=== PATIENT | male | born 1980 | race Caucasian/White ===

== ENCOUNTER → 2020-02-05 12:02 | Outpatient (CLI) | payer BC, SELFPAY ==
--- NOTE | ~2020-02-05 | XR_ITS ---
EXAMINATION: XR chest 2V 02/05/2020 12:31 INDICATION: Cough PROCEDURE: 2 view chest COMPARISON: No prior studies for comparison. FINDINGS: The lungs are clear. The cardiomediastinal silhouette is within normal limits. There are no pleural effusions. There is no pneumothorax suspected. IMPRESSION: 1: NO ACUTE CARDIOPULMONARY DISEASE. Reviewed, dictated and finalized at location A.
== END ==
PROVIDERS: PCP Family Medicine; Visit Provider Family Medicine
DX: R05 Cough (principal)
CPT/HCPCS: 71046

== ENCOUNTER 2024-02-03 04:55 | Inpatient (IN) | payer BC, SELFPAY ==
--- NOTE | ~2024-02-03 | US_ITS ---
EXAMINATION: US abdomen limited DATE: 02/03/2024 08:05 INDICATION: Abnormal liver function tests. TECHNIQUE: Multiple grayscale and Doppler ultrasound images of the abdomen were obtained. COMPARISON: CT abdomen and pelvis 02/03/2024 FINDINGS: The pancreas demonstrates heterogeneous echogenicity, consistent with pancreatitis. There i s diffuse hepatic steatosis. There is normal flow in main portal vein. The gallbladder is normal in s ize and contains a gallstone. No gallbladder wall thickening or sonographic [place] sign. The common d uct is normal and measures 2 mm. IMPRESSION: 1. Heterogeneous pancreas, consistent with pancreatitis. 2. Diffuse hepatic steatosis. 3. Cholelithiasis. No evidence of acute cholecystitis. Reviewed, dictated and finalized at location A.
--- NOTE | ~2024-02-03 | CT_ITS ---
EXAMINATION: CT abdomen pelvis wo con DATE: 02/03/2024 06:17 INDICATION: Abdominal pain. TECHNIQUE: Computed tomography (CT) of the abdomen and pelvis was performed without intravenous contr ast. Automated exposure control and iterative reconstruction technique were employed. The dose-length product was 1466.79 mGy-cm. COMPARISON: CT abdomen 09/16/2018 FINDINGS: The visualized portions of the lung bases demonstrate mild atelectasis. No pleural effusion . The heart size is normal. No pericardial effusion. There is a small sliding hiatal hernia. There is diffuse hepatic steatosis. There are gallstones in the gallbladder, which is distended. The spleen i s normal. There is fat stranding around the pancreas, consistent with pancreatitis. There is a calcif ication in the pancreas, consistent with chronic pancreatitis. The common duct is normal and measures 6 mm. The adrenal glands and kidneys are normal. The prostate is mildly enlarged. There are no dilat ed loops of bowel. The appendix is normal. There are no pathologically enlarged lymph nodes. There is no free intraperitoneal fluid. There is mild thoracic and lumbar spondylosis. IMPRESSION: 1. Acute on chronic interstitial pancreatitis. 2. Cholelithiasis. Gallbladder distention may be secondary to fasting or acute cholecystitis. Reviewed, dictated and finalized at location A.
--- NOTE | ~2024-02-03 | MR_ITS ---
MRI of the abdomen: Clinical indication: Gallstone pancreatitis. Technique: Coronal SSFSE ARC, WATER:coronal LAVA-FLEX, Coronal 2D FIESTA FatSat, Axial SSFSE BH ARC, Axial 3D DualEcho BH, Axial SSFSE-IR, Axial DWI b=500, Axial 2D FIESTA FatSat, pre and dynamic postco ntrast Axial LAVA ARC, postcontrast Coronal In and Opposed phase LAVA FLEX. Following intravenous adm inistration of 20 cc MultiHance gadolinium, T1-weighted fat-sat imaging was performed in the axial an d coronal planes. Findings: There is a large gallstone, measuring approximately 5 cm in maximum diameter. No definite g allbladder wall thickening. The common bile duct is normal in course and caliber. No filling defects are seen within the CBD. No evidence of intrahepatic biliary ductal dilatation. The pancreatic duct i s normal in size. There is diffuse signal drop off in the liver on out of phase images relative to in phase images, com patible with diffuse fatty infiltration. There is diffuse edematous change of the pancreas with exten sive peripancreatic fluid, extending into the paracolic gutters, compatible with acute pancreatitis. No pseudocyst evident. Spleen, adrenals, kidneys appear normal. The aorta and the paraaortic regions appear normal. Impression: Acute pancreatitis. Diffuse fatty infiltration of liver. Cholelithiasis. No evidence of choledocholithiasis. Reviewed, dictated and finalized at [facility] [place]. Impression: Acute pancreatitis. Diffuse fatty infiltration of liver. Cholelithiasis. No evidence of choledocholithiasis.
[2024-02-03 05:00] VITALS: BP 138/82; PULSE 54; RESP 16; TEMP 36.4; O2SAT 100
[2024-02-03 05:19] LABS: Basophils Percent Auto 0.3 % (0.2-1.2); Eosinophils Percent Auto 0.3 % (0-4.4); Hemoglobin 15.7 g/dL (14.0-18.0); Immature Granulocyte Absolute 0.07 K/mm3 (0.00-0.031); Immature Granulocyte Percent A 0.5 % (0-0.5); Lymphocytes Absolute Auto 2.04 K/mm3 (0.9-3.2); Lymphocytes Percent Auto 14.8 % (18.3-44.2); Mean Corpuscular HGB Conc 34.9 g/dl (32-36); Monocytes Absolute Auto 0.9 K/mm3 (0.1-0.6); Monocytes Percent Auto 6.1 % (2.6-8.5); Neutrophils Absolute Auto 10.8 K/mm3 (1.3-6.7); Platelet Count Result 236 k/mm3 (150-375); Red Blood Count 5.23 M/mm3 (4.6-6.20); Red Cell Distribution Width 13.8 % (11.5-14.5); White Blood Count 13.8 K/mm3 (4.5-10.0)
--- NOTE | 2024-02-03 05:32 | ED.GENADULT ---
HPI - General Adult General Chief complaint: Abdominal Pain Stated complaint: N/V, ABD and BACK pain Time Seen by Provider: 02/03/24 05:12 History of Present Illness HPI narrative: Patient is a 43-year-old gentleman presents emergency department chief complaint of abdominal pain. Patient reports that he started pain yesterday reports that it starts in the upper abdomen but now has continued to the rest of his abdomen the patient reports he has not had been able to keep anything down has had vomiting of the patient reports that symptoms are not improved by anything he denies diarrhea reports he has had a normal bowel movement the last 24 hours denies prior surgical history on the abdomen Related Data Allergies Allergy/AdvReac Type Severity Reaction Status Date / Time Iodinated Contrast Media Allergy Intermediate Sneezing Verified 02/03/24 05:14 vyvanse AdvReac Intermediate heart Uncoded 02/03/24 05:14 racing Review of Systems Review of Systems: A 10 system review of systems was completed on the patient and is negative except for what is stated in the HPI. Nursing and ancillary documentation was reviewed. [facility] Past Medical History Medical History Adult BMI 32.0-32.9 kg/sq m Family History Family History Other Hypertension Social History Social History Smoking status: Former smoker Alcohol intake: current Substance use: current Substance use type: marijuana Lack of Transportation: No Lack of Food: Never True Current Housing: I Have Housing Concerned About Future Housing: No Difficulty Paying Gas/Electric Bills: No Difficulty Paying for Meds: No Currently Unemployed: No Education: Bachelor's Degree Difficulty w/ Childcare or Family Care: No Living arrangements: with family Occupation/Education: occupation Additional occupation/education comments: IT Gender identity (if verbalized by the patient): Male Exam Narrative: GENERAL: Well-appearing, well-nourished, and in no acute distress. HEAD: Normocephalic, atraumatic. EYES: PERRLA and EOMI. ENT: Nares clear, no rhinorrhea or epistaxis. Mucous membranes moist. NECK: Supple. CHEST: Clear to auscultation. No respiratory distress. HEART: Regular rate and rhythm. No murmur heard. Normal peripheral pulses. ABDOMEN: Soft, diffusely tender, nondistended, normal active bowel sounds. EXTREMITIES: Normal range of motion. No edema. SKIN: Warm, dry, no rash. NEURO: No focal deficits. Alert and oriented x3. PSYCH: Normal mood and affect. Course Vital Signs Vital signs: Vital Signs Temperature 36.4 C 02/03/24 05:00 Pulse Rate 54 L 02/03/24 05:00 Respiratory Rate 16 02/03/24 05:00 Blood Pressure 138/82 02/03/24 05:00 Pulse Oximetry 100 02/03/24 05:00 Oxygen Delivery Room Air 02/03/24 05:00 Temperature 36.4 C 02/03/24 05:00 Pulse Rate 54 L 02/03/24 05:00 Respiratory Rate 16 02/03/24 05:00 Blood Pressure 138/82 02/03/24 05:00 Pulse Oximetry 100 02/03/24 05:00 Oxygen Delivery Room Air 02/03/24 05:00 Medical Decision Making [facility] Narrative Medical decision making narrative: Differential diagnosis includes gastritis, pancreatitis, cholecystitis Laboratory studies were obtained on the patient showed a white count of 13.8 electrolytes showed normal renal function bilirubin is 2.1 AST and ALT were elevated at 313 and 253 lipase was 31,813 CT scan of the abdomen pelvis showed 1. Acute on chronic interstitial pancreatitis. 2. Cholelithiasis. Gallbladder distention may be secondary to fasting or acute cholecystitis. Vital Signs Vital Signs: Vital Signs Temperature 36.4 C 02/03/24 05:00 Pulse Rate 54 L 02/03/24 05:00 Respiratory Rate 16 02/03/24 05:00 Blood Pressure 138/82
[2024-02-03 05:41] LABS: Alanine Aminotransferase 253 U/L (6-50); Albumin Level 4.7 g/dL (3.5-5.1); Alkaline Phosphatase 82 U/L (38-126); Anion Gap 9 mmol/L (4-12); Aspartate Amino Transferase 313 U/L (17-59); Bilirubin,Total 2.1 mg/dL (0.2-1.3); Blood Urea Nitrogen 18 mg/dL (9-20); Calcium 9.2 mg/dL (8.4-10.2); Carbon Dioxide 28 mmol/L (22-30); Chloride 98 mmol/L (98-107); Estimated CRCL calculation 99 ml/min; Estimated Glomerular Filt Rate > 60; Glucose 227 mg/dL (65-110); Potassium 3.8 mmol/L (3.4-5.0); Sodium 135 mmol/L (137-145)
[2024-02-03] MEDS: SODIUM CHLORIDE 0.9% IV 1,000 ML 999 ML IV CONT (05:45)
[2024-02-03] MEDS: MORPHINE SULFATE (*CRX) 4 MG/ML INJ IV PUSH ×5 (05:46→22:23)
[2024-02-03] MEDS: ONDANSETRON INJ 4 MG/2 ML VIAL IV PUSH ×4 (05:46→22:22)
[2024-02-03 06:31] LABS: Lipase 31813 U/L (23-300)
[2024-02-03 06:38] VITALS: BP 133/91; PULSE 57; RESP 14; O2SAT 100
[2024-02-03 06:50] LABS: Add Urine Microscopic? YES; Appearance Urine Clear (Clear); Bacteria Urine None Seen /hpf; Bilirubin Urine Negative (Negative); Blood Urine Negative (Negative); Color Urine Dark Yellow (Yellow); Glucose Urine UA Trace mg/dL (Negative); Ketones Urine Trace mg/dL (Negative); Leukocyte Esterase Ur Negative LEU/UL (Negative); Nitrate Urine Negative (Negative); Non Pathogenic Casts 0-2; Protein Urine Trace mg/dL (Negative); RBC Urine 0-2 /hpf (0-2); Specific Grav Ur 1.019 (1.001-1.035); Squamous Epithelial Cell Urine None Seen /hpf (Few); WBC Urine 0-5 /hpf (0-3); pH Urine 6.5 (5.0-9.0)
--- NOTE | 2024-02-03 09:22 | PM.IMHP ---
H&P: HPI History of Present Illness Date/Time: 02/03/24 09:22 Chief Complaint: abdominal pain Narrative: Patient is a 43-year-old gentleman presents emergency department chief complaint of abdominal pain. Patient reports that he started pain yesterday reports that it starts in the upper abdomen but now has continued to the rest of his abdomen the patient reports he has not had been able to keep anything down has had vomiting of the patient reports that symptoms are not improved by anything he denies diarrhea reports he has had a normal bowel movement the last 24 hours denies prior surgical history on the abdomen. He does report that he had 2 drinks night. He had says when he was on was related to binge drinking. No new sites. No fever chills. Review of Systems Review of Systems: - CONSTITUTIONAL: Denies weight loss, fever and chills. - HEENT: Denies changes in vision and hearing - RESPIRATORY: Denies SOB and cough. - CV: Denies palpitations and CP. - GI: Reports abdominal pain, nausea, vomiting and denies diarrhea. - : Denies dysuria and urinary frequency. - MSK: Denies myalgia and joint pain. - SKIN: Denies rash and pruritus. - NEUROLOGICAL: Denies headache and syncope. - PSYCHIATRIC: Denies recent changes in mood. Denies anxiety and depression. [facility] Past Medical History Medical History Adult BMI 32.0-32.9 kg/sq m Family History Family History Other Hypertension Social History Social History Smoking status: Never smoker Alcohol intake: never Substance use: current Substance use type: marijuana Other substance usage details: Edibles - occasional Do You Feel Safe in your Home?: Yes Lack of Transportation: No Lack of Food: Never True Current Housing: I Have Housing Concerned About Future Housing: No Difficulty Paying Gas/Electric Bills: No Difficulty Paying for Meds: No Currently Unemployed: No Education: Don't Know Difficulty w/ Childcare or Family Care: No Living arrangements: with family Occupation/Education: occupation Additional occupation/education comments: IT Gender identity (if verbalized by the patient): Male Spiritual care concerns: No Meds Home Medications and Allergies Allergies Allergy/AdvReac Type Severity Reaction Status Date / Time Iodinated Contrast Media Allergy Intermediate Sneezing Verified 02/03/24 09:48 lisdexamfetamine AdvReac Intermediate heart Verified 02/03/24 09:48 [From [employer]] racing Vital Signs Vital Signs - 24 hr 02/03/24 05:00 02/03/24 06:38 Temperature 97.6 F Pulse Rate 54 L 57 L Respiratory Rate 16 14 Blood Pressure 138/82 133/91 H Pulse Oximetry 100 100 Oxygen Delivery Room Air Exam Narrative: GENERAL: Well-appearing, well-nourished, and in no acute distress. HEAD: Normocephalic, atraumatic. EYES: PERRLA and EOMI. ENT: Nares clear, no rhinorrhea or epistaxis. Mucous membranes moist. NECK: Supple. CHEST: Clear to auscultation. No respiratory distress. HEART: Regular rate and rhythm. No murmur heard. Normal peripheral pulses. ABDOMEN: Soft, tender epigastrium, nondistended, normal active bowel sounds. EXTREMITIES: Normal range of motion. No edema. SKIN: Warm, dry, no rash. NEURO: No focal deficits. Alert and oriented x3. PSYCH: Normal mood and affect. H&P: Results Labs Labs: Short CBC 02/03/24 Range/Units 05:12 WBC 13.8 H (4.5-10.0) K/mm3 Hgb 15.7 (14.0-18.0) g/dL Hct 45.0 (42.0-52.0) % Plt Count 236 (150-375) k/mm3 [facility] 02/03/24 05:12 Sodium 135 L Potassium 3.8 Chloride 98 Carbon Dioxide 28 BUN 18 Creatinine 1.10 Glucose 227 H Calcium 9.2 Liver Function 02/03/24 Range/Units 05:12 Total Bilirubin 2.1 H (0.2-1.3) mg/dL
--- NOTE | 2024-02-03 09:35 | WPDCN ---
Assessment and Plan Assessment and plan (1) Acute pancreatitis: Code(s): K85.90 - Acute pancreatitis without necrosis or infection, unspecified Status: Acute Assessment and Plan: Patient admitted with relatively severe acute pancreatitis could be biliary in etiology or possibly alcohol use. He has a prior history of acute pancreatitis many years ago due to alcohol use. He did have some alcohol this last week but stated it was not an excessive amount. He does have a gallstone some gallbladder wall thickening which could be reactive to his acute pancreatitis. Total bilirubin is elevated to 2.1 so he may have had a small gallstone pass and the gallbladder into the common bile duct which could have passed through. Common bile duct is normal caliber a 2mm however. I recommend supportive management in the hospital for pancreatitis. No need for emergent laparoscopic cholecystectomy. Given that the has a large gallstone and he has not had episodes of acute pancreatitis for many years appears to not be drinking in excess amount of alcohol I would suspect that pancreatitis would be due to biliary origin. Once his acute pancreatitis has resolved we can consider a laparoscopic cholecystectomy either during this admission or at interval lap [facility] as outpatient. Will follow. (2) Gallstone: Code(s): K80.20 - Calculus of gallbladder without cholecystitis without obstruction Status: Acute Assessment and Plan: As above. HPI Data of Consult Date/Time: 02/03/24 09:35 Requesting Physician: Remigio Taylor MD Primary Care Provider: Sae Kim MD Consult Narrative Reason for consult: Acute pancreatitis, cholelithiasis Narrative: Richard Rodgers is a 44 year old male admitted through the emergency room early this morning. Last evening he had some gastric pain but then went to bed and then over the evening he had worsening pain woke up this morning with severe epigastric abdominal pain. He has had 1 episode of acute pancreatitis was 17 years old. He is 44 years old now. 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 Otherwise is not had any abdominal surgery. In the emergency room he was noted to have a markedly elevated lipase level almost 32,000. Total bilirubin was elevated 2.1 and AST and ALT were elevated. Alkaline phosphatase was normal. Abdominal ultrasound shows a gallstone. Gallbladder wall was mildly thickened which could be reactive to his pancreatitis or mild acute cholecystitis due to his gallstones. CT scan showed gallstones as well as acute interstitial pancreatitis which did not appear to be necrotizing at this time. Patient white blood count is 13,800. He is afebrile. This morning he epigastric abdominal pain rating 6/10. He has pretty severe nausea and is getting Zofran for his nausea. His pancreatitis when he was 17 years old was due to excessive alcohol use. He has not had a other admissions or issues with acute pancreatitis since that time. He states he did have some alcohol during her work trip this week but he did not think it was excessive. Review of Systems Review of Systems: The remainder of the review of systems to include constitutional, HEENT, cardiovascular, respiratory, GI, , integumentary, musculoskeletal, endocrine, immunologic, hematologic, psychiatric, and neurologic are all negative except for which is mentioned above in the HPI. [facility] Past Medical History Medical History Adult BMI 32.0-32.9 kg/sq m Family History Family History Other Hypertension Social History Social History Smoking status: Former smoker Alcohol intake: current Substance use: current Substance use type: marijuan
[2024-02-03 09:36] LABS: Triglycerides 158 mg/dL (<150)
--- NOTE | 2024-02-03 09:42 | ADMGEN ---
This patient, Richard Rodgers, was admitted to Medical Room 343-01. Patient/family oriented to hospital policies and general routines including ID bracelet, bed and alarms, visiting hours, pain management, procedures, bathroom and other care routines, personal items, smoking policy, room service/diet, and visiting hours. Information on how to activate the Rapid Response Team has been discussed. Patient/Family are encouraged to report perceived risks to care and to ask questions if they do not understand what they are told or what they should do.
[2024-02-03 09:45] VITALS: BP 146/87; PULSE 58; RESP 18; TEMP 36.3; O2SAT 97
[2024-02-03 09:48] LABS: Hemoglobin A1C 5.5 % (<5.7)
[2024-02-03] MEDS: PANTOPRAZOLE SODIUM IV 40 MG VIAL IV PUSH (09:53)
[2024-02-03] MEDS: SODIUM CHLORIDE 0.9% IV 1,000 ML 125 ML IV CONT ×3 (09:53→22:29)
[2024-02-03] MEDS: ENOXAPARIN 40 MG/0.4 ML SYRINGE SUB-Q (09:53)
[2024-02-03 14:28] VITALS: BP 180/96; PULSE 71; RESP 19; TEMP 36.5; O2SAT 96
--- NOTE | 2024-02-03 14:35 | WPDGICN ---
Assessment and Plan Assessment and plan (1) Gallstone pancreatitis: Code(s): K85.10 - Biliary acute pancreatitis without necrosis or infection Status: Acute Assessment and Plan: pain control, fluids and npo for now surgery in the case, at some point may need lap emanuel once pancreatitis better get MRCP to assess if stone in bile duct given elevated liver enzymes but this also could be just from pancreatitis (2) Elevated liver enzymes: Code(s): R74.8 - Abnormal levels of other serum enzymes Status: Acute Assessment and Plan: monitor mrcp (3) Nausea & vomiting: Code(s): R11.2 - Nausea with vomiting, unspecified Status: Acute Assessment and Plan: antiemetics npo for now (4) Upper abdominal pain: Code(s): R10.10 - Upper abdominal pain, unspecified Status: Acute GI Consult Note Consult date/time: 02/03/24 14:35 Reason for consult: gallstone pancreatitis HPI: Richard Rodgers is a 44 year old male who had pancreatitis at age 18-18 years old, he remember that required endoscopic drainage of pancreatic cyst ? EUS (no records) and since has been doing quite well, denies any more episodes. He came her with new pain that got severe in upper abdomen associated with nausea adn vomiting. ER labs showed markedly elevated lipase level almost 32,000. Total bilirubin was elevated 2.1 and AST and ALT were elevated. Alkaline phosphatase was normal. Abdominal ultrasound shows a gallstone. Gallbladder wall was mildly thickened which could be reactive to his pancreatitis or mild acute cholecystitis due to his gallstones. CT scan showed gallstones as well as acute interstitial pancreatitis. He says that drinks only socially. Review of Systems Constitutional: Constitutional: Denies headache(s) and Denies weakness Eyes: Eyes: Denies blurry vision ENT: Reports Normal hearing present, Denies headache(s) and Denies neck pain Cardiovascular: Cardiovascular: Denies chest pain and Denies dyspnea Respiratory: Respiratory: Denies dyspnea Gastrointestinal: Gastrointestinal: Reports no additional gastrointestinal complaints Genitourinary: Genitourinary: Denies dysuria Musculoskeletal: Musculoskeletal: Denies neck pain Integumentary/Breasts: Skin/Breast: Denies dry skin Neurologic: Reports Normal hearing present, Denies headache(s) and Denies weakness Psychiatric: Psychiatric: Denies anxiety Endocrine: Endocrine: Denies change in body appearance Hematologic/Lymphatic: Hematologic/Lymphatic: Denies easy bleeding Allergic/Immunologic: Allergic/Immunologic: Denies urticaria PMFSH Past Medical History Medical History (Updated 02/03/24 @ 14:39 by Prasanna Segundo MD) Adult BMI 32.0-32.9 kg/sq m Gallstone pancreatitis Nausea & vomiting Upper abdominal pain Family History Family History Other Hypertension Social History Social History Smoking status: Never smoker Alcohol intake: never Substance use: current Substance use type: marijuana Other substance usage details: Edibles - occasional Do You Feel Safe in your Home?: Yes Lack of Transportation: No Lack of Food: Never True Current Housing: I Have Housing Concerned About Future Housing: No Difficulty Paying Gas/Electric Bills: No Difficulty Paying for Meds: No Currently Unemployed: No Education: Don't Know Difficulty w/ Childcare or Family Care: No Living arrangements: with family Occupation/Education: occupation Additional occupation/education comments: IT Gender identity (if verbalized by the patient): Male Spiritual care concerns: No Meds Home Medications and Allergies Allergies Allergy/AdvReac Type Severity Reaction Status Date / Time Iodinated Contrast Media Allergy Intermediate Sneezing Verified 02/03/24 09:48 lisdexamfe
[2024-02-03 21:15] VITALS: BP 175/99; PULSE 91; RESP 20; TEMP 36.9; O2SAT 98
[2024-02-03 21:55] VITALS: O2SAT 98
[2024-02-04 01:45] VITALS: BP 142/94; O2SAT 96
[2024-02-04] MEDS: MORPHINE SULFATE (*CRX) 4 MG/ML INJ IV PUSH ×2 (04:05→07:57)
[2024-02-04] MEDS: SODIUM CHLORIDE 0.9% IV 1,000 ML 125 ML IV CONT ×3 (05:38→20:51)
[2024-02-04 05:47] LABS: Basophils Percent Auto 0.2 % (0.2-1.2); Hematocrit 45.5 % (42.0-52.0); Hemoglobin 15.4 g/dL (14.0-18.0); Immature Granulocyte Absolute 0.12 K/mm3 (0.00-0.031); Immature Granulocyte Percent A 0.6 % (0-0.5); Lymphocytes Absolute Auto 1.11 K/mm3 (0.9-3.2); Lymphocytes Percent Auto 5.6 % (18.3-44.2); Mean Corpuscular HGB Conc 33.8 g/dl (32-36); Mean Corpuscular Hemoglobin 29.5 pg (26-34); Mean Corpuscular Volume 87.2 fl (80-100); Mean Platelet Volume 9.9 fl (7.4-10.4); Monocytes Absolute Auto 1.6 K/mm3 (0.1-0.6); Neutrophils Absolute Auto 17.1 K/mm3 (1.3-6.7); Neutrophils Percent Auto 85.6 % (45.5-73.1); Platelet Count Result 208 k/mm3 (150-375); Red Blood Count 5.22 M/mm3 (4.6-6.20); Red Cell Distribution Width 14.5 % (11.5-14.5); White Blood Count 19.9 K/mm3 (4.5-10.0)
[2024-02-04 05:54] VITALS: BP 151/98; PULSE 105; RESP 20; TEMP 37.1; O2SAT 97
[2024-02-04 06:17] LABS: Alanine Aminotransferase 419 U/L (6-50); Albumin Level 4.2 g/dL (3.5-5.1); Alkaline Phosphatase 70 U/L (38-126); Anion Gap 9 mmol/L (4-12); Aspartate Amino Transferase 163 U/L (17-59); Bilirubin,Total 4.1 mg/dL (0.2-1.3); Blood Urea Nitrogen 20 mg/dL (9-20); Calcium 8.5 mg/dL (8.4-10.2); Carbon Dioxide 27 mmol/L (22-30); Chloride 100 mmol/L (98-107); Estimated CRCL calculation 99 ml/min; Estimated Glomerular Filt Rate > 60; Glucose 164 mg/dL (65-110); Magnesium 1.9 mg/dL (1.6-2.3); Potassium 4.4 mmol/L (3.4-5.0); Sodium 136 mmol/L (137-145)
[2024-02-04 06:59] LABS: Lipase 4533 U/L (23-300)
[2024-02-04] MEDS: PANTOPRAZOLE SODIUM IV 40 MG VIAL IV PUSH (07:52)
[2024-02-04] MEDS: ENOXAPARIN 40 MG/0.4 ML SYRINGE SUB-Q (07:53)
[2024-02-04] MEDS: ONDANSETRON INJ 4 MG/2 ML VIAL IV PUSH ×2 (07:53→14:45)
--- NOTE | 2024-02-04 08:16 | PM.IMPN ---
Progress Note: A&P Assessment and Plan (1) Gallstone: Code(s): K80.20 - Calculus of gallbladder without cholecystitis without obstruction Status: Acute (2) Acute pancreatitis: Code(s): K85.90 - Acute pancreatitis without necrosis or infection, unspecified Status: Acute (3) Elevated liver enzymes: Code(s): R74.8 - Abnormal levels of other serum enzymes Status: Acute Plan Patient is a 43-year-old gentleman presents emergency department chief complaint of abdominal pain. Patient reports that he started pain yesterday reports that it starts in the upper abdomen but now has continued to the rest of his abdomen the patient reports he has not had been able to keep anything down has had vomiting of the patient reports that symptoms are not improved by anything he denies diarrhea reports he has had a normal bowel movement the last 24 hours denies prior surgical history on the abdomen On ED evaluation vitals were stable. Laboratory test studies reveal white cell count of 13.8 normal renal function blood sugar 227. Lipase came back at 31,813. AST and ALT were elevated at 313 and 253 respectively with a bilirubin of 2.1. CT scan of the abdomen pelvis showed acute on chronic interstitial pancreatitis with cholelithiasis. Gallbladder distention may be secondary to fasting acute cholecystitis. Follow-up abdominal ultrasound showed a dizziness pain care consistent with pancreatitis with diffuse hepatic steatosis and cholelithiasis with no evidence of acute cholecystitis. Patient will be treated with IV fluid pain control with analgesics and antiemetics. Will keep him NPO for now. check triglycerides. History of pancreatitis related to binge alcohol use in the past. though he had recent alcohol use was not excessive amount. He does have gallstone in the gallbladder however bile ducts are not distended. Possibility of biliary pancreatitis. Trend LFTs for now if if not improving may need MRCP evaluation. GI and General surgery has been consulted. MRCP with no choledocholithiasis. LFTs trending up. Continue IV fluid resuscitation and other orders as is. Abnormal liver function test no biliary ductal dilatation noted. Will continue to monitor. GI consultation. MRCP with no choledocholithiasis. Continue to trend LFT. Likely from acute pancreatitis. Change IV pain medication to Dilaudid IV due to nausea DVT prophylaxis Lovenox Code status full code Subjective Date/time seen: 02/04/24 08:18 Interval history: No overnight events reported. feels better. Still has some nausea and had episode of vomiting earlier today. Remains afebrile. Labs reviewed. MRCP reviewed. Review of Systems Review of Systems: All systems reviewed & are unremarkable except as noted in HPI and below Exam Narrative: GENERAL: Well-appearing, well-nourished, and in no acute distress. HEAD: Normocephalic, atraumatic. EYES: PERRLA and EOMI. ENT: Nares clear, no rhinorrhea or epistaxis. Mucous membranes moist. NECK: Supple. CHEST: Clear to auscultation. No respiratory distress. HEART: Regular rate and rhythm. No murmur heard. Normal peripheral pulses. ABDOMEN: Soft, tender epigastrium, nondistended, normal active bowel sounds. EXTREMITIES: Normal range of motion. No edema. SKIN: Warm, dry, no rash. NEURO: No focal deficits. Alert and oriented x3. PSYCH: Normal mood and affect. Objective Data Vital Signs Vital Signs: Vital Signs - 24 hr 02/03/24 09:45 02/03/24 14:28 02/03/24 16:55 Temperature 97.3 F L 97.7 F Pulse Rate 58 L 71 Respiratory Rate 18 19 Blood Pressure 146/87 H 180/96 H Pulse Oximetry 97 96 Oxygen Delivery Room Air 02/03/24 21:15 02/03/24 21:55 02/04/24 01:45 Temperature 98.4 F Pulse Rate 91 Respiratory Rate 20 Blood Pressure 175/99 H 142/94 H Pulse Oximetry 98 98 96 Oxygen Delivery Room Air 02/04/24 05:54 02/04/24 07:57 Temperature 98.8 F Pulse Rate 105 H Respirator
[2024-02-04 09:59] VITALS: O2SAT 96
--- NOTE | 2024-02-04 13:06 | WPDPN ---
Progress Note: A&P Assessment and Plan (1) Acute pancreatitis: Code(s): K85.90 - Acute pancreatitis without necrosis or infection, unspecified Status: Acute Assessment and Plan: Clinically the patient has acute pancreatitis improved today. Exact etiology is still not certain but biliary pancreatitis or alcoholic pancreatitis is most likely going to be the reason for his episode. White blood count increased but clinically he looks much better. Lipase is markedly decreased but his total bilirubin increased. GI continues to follow. For now continue supportive management. I think he was started on some clear liquids today. We will continue to follow. Would recommend eventual laparoscopic cholecystectomy once his acute pancreatitis resolves. (2) Gallstone: Code(s): K80.20 - Calculus of gallbladder without cholecystitis without obstruction Status: Acute Assessment and Plan: As above Subjective Date/time seen: 02/04/24 13:06 Interval history: Patient feels better today. Still some nausea and only have 1 episode of emesis early today. Abdominal pain in the epigastric region is better today. He is able to get up and ambulate to bathroom independently. White blood cell count increased to 19,900 today. Clinically he looks better. Lipase is markedly decreased from 32,000 down to 3500. Total bilirubin has increased to 4.1 from 2.1. MRCP performed showed no evidence of retained common bile duct stone and normal appearing common bile duct. Large 5cm gallstone noted within the infundibular gallbladder. No acute inflammatory changes of the gallbladder wall. Interstitial pancreatitis noted without formation of pseudocyst at this time. Exam GI: Other: Abdomen is soft and mildly distended. Much less tenderness in the epigastric region of the abdomen today compared to yesterday's exam. Objective Data Vital Signs Vital Signs: Vital Signs - 24 hr 02/03/24 14:28 02/03/24 16:55 02/03/24 21:15 Temperature 36.5 C 36.9 C Pulse Rate 71 91 Respiratory Rate 19 20 Blood Pressure 180/96 H 175/99 H Pulse Oximetry 96 98 Oxygen Delivery Room Air Fraction of Inspired Oxygen 02/03/24 21:55 02/04/24 01:45 02/04/24 05:54 Temperature 37.1 C Pulse Rate 105 H Respiratory Rate 20 Blood Pressure 142/94 H 151/98 H Pulse Oximetry 98 96 97 Oxygen Delivery Room Air Fraction of Inspired Oxygen 02/04/24 07:57 02/04/24 09:59 Temperature Pulse Rate Respiratory Rate Blood Pressure Pulse Oximetry 96 Oxygen Delivery Room Air Room Air Fraction of Inspired Oxygen 21 Intake/Output Intake/Output: Intake & Output 02/01/24 02/02/24 02/03/24 02/04/24 23:59 23:59 23:59 23:59 Intake Total 2575.1 893.8 Balance 2575.1 893.8 Meds/Results Medications: Active Medications Generic Name Dose Route Start Last Admin Trade Name Freq PRN Reason Stop Dose Admin Enoxaparin Sodium 40 mg 02/03/24 09:00 02/04/24 07:53 Enoxaparin 40 Mg/0.4 Ml Syringe SUB-Q 40 mg DAILY ALLEY Administration Hydromorphone HCl 1 mg 02/04/24 11:26 Hydromorphone Hcl Inj (*Crx) 1 Mg/Ml Syr IV PUSH Q3H PRN Pain Rated 7-10 Sodium Chloride 1,000 mls @ 125 mls/hr 02/03/24 07:20 02/04/24 05:38 Normal Saline Iv IV CONT 125 mls/hr .Q8H ALLEY Administration Ondansetron HCl 4 mg 02/03/24 09:30 02/04/24 07:53 Ondansetron Inj 4 Mg/2 Ml Vial IV PUSH 4 mg Q6H PRN Administration Nausea And Vomiting Pantoprazole Sodium 40 mg 02/03/24 09:00 02/04/24 07:52 Pantoprazole Sodium Iv 40 Mg Vial IV PUSH 40 mg QAM ALLEY Administration Radiology Results: ITS Impressions Abdomen/Pelvis CT 02/03/24 06:17 IMPRESSION: 1. Acute on chronic interstitial pancreatitis. 2. Cholelithiasis. Gallbladder distention may be secondary to fasting or acute cholecystitis. Abdomen Ultrasound 02/03/24 08:19 IMPRESSION: 1. Heterogeneous pancreas, c
[2024-02-04 13:53] VITALS: BP 173/93; PULSE 105; RESP 16; TEMP 36.7; O2SAT 96
[2024-02-04] MEDS: HYDROmorphone HCL INJ (*CRX) 1 MG/ML SYR IV PUSH ×2 (14:49→20:49)
--- NOTE | 2024-02-04 15:54 | WPDGIPROGNO ---
Progress Note: A&P Assessment and Plan (1) Gallstone pancreatitis: Code(s): K85.10 - Biliary acute pancreatitis without necrosis or infection Status: Acute Assessment and Plan: clinically better, bili up but no bile duct stones, mrcp showed cholelithiasis and fattyy liver will need interval lap emanuel, timing per surgery tolerating liquid diet (2) Elevated liver enzymes: Code(s): R74.8 - Abnormal levels of other serum enzymes Status: Acute Assessment and Plan: monitor (3) Nausea & vomiting: Code(s): R11.2 - Nausea with vomiting, unspecified Status: Acute Assessment and Plan: better (4) Upper abdominal pain: Code(s): R10.10 - Upper abdominal pain, unspecified Status: Acute Assessment and Plan: better with pain meds Subjective Date/time seen: 02/04/24 15:54 Interval history: less pain today and tolerating liquid diet Review of Systems Review of Systems: All systems reviewed & are unremarkable except as noted in HPI and below Exam Const: General: comfortable and no acute distress HENMT: Face/Nose/Sinus: Normal nares present Eyes: General: appearance normal, both eyes and all related structures Sclera: sclerae normal (No scleral icterus) Neck: Neck: supple Resp: Auscultation: clear to auscultation bilaterally Cardio: Rate: regular rate Rhythm: regular rhythm GI: Inspection: distended GI Palp: Yes Soft to palpation and Yes Tenderness to palpation present (GI) (less tender today) Auscultation: normal bowel sounds Skin: General skin exam: normal color Neuro: Speech: normal speech Motor exam (neuro): 5/5 motor strength present throughout Extrem: General: normal to inspection Psych: Mental Status: mental status grossly normal Affect: normal affect Objective Data Vital Signs Vital Signs: Vital Signs - 24 hr 02/03/24 16:55 02/03/24 21:15 02/03/24 21:55 Temperature 98.4 F Pulse Rate 91 Respiratory Rate 20 Blood Pressure 175/99 H Pulse Oximetry 98 98 Oxygen Delivery Room Air Room Air Fraction of Inspired Oxygen 02/04/24 01:45 02/04/24 05:54 02/04/24 07:57 Temperature 98.8 F Pulse Rate 105 H Respiratory Rate 20 Blood Pressure 142/94 H 151/98 H Pulse Oximetry 96 97 Oxygen Delivery Room Air Fraction of Inspired Oxygen 02/04/24 09:59 02/04/24 13:53 Temperature 98.1 F Pulse Rate 105 H Respiratory Rate 16 Blood Pressure 173/93 H Pulse Oximetry 96 96 Oxygen Delivery Room Air Fraction of Inspired Oxygen 21 Intake/Output Intake/Output: Intake & Output 02/01/24 02/02/24 02/03/24 02/04/24 23:59 23:59 23:59 23:59 Intake Total 2575.1 2083.8 Balance 2575.1 2083.8 Meds/Results Medications: Active Medications Generic Name Dose Route Start Last Admin Trade Name Freq PRN Reason Stop Dose Admin Enoxaparin Sodium 40 mg 02/03/24 09:00 02/04/24 07:53 Enoxaparin 40 Mg/0.4 Ml Syringe SUB-Q 40 mg DAILY ALLEY Administration Hydromorphone HCl 1 mg 02/04/24 11:26 02/04/24 14:49 Hydromorphone Hcl Inj (*Crx) 1 Mg/Ml Syr IV PUSH 1 mg Q3H PRN Administration Pain Rated 7-10 Sodium Chloride 1,000 mls @ 125 mls/hr 02/03/24 07:20 02/04/24 14:48 Normal Saline Iv IV CONT 125 mls/hr .Q8H ALLEY Administration Ondansetron HCl 4 mg 02/03/24 09:30 02/04/24 14:45 Ondansetron Inj 4 Mg/2 Ml Vial IV PUSH 4 mg Q6H PRN Administration Nausea And Vomiting Pantoprazole Sodium 40 mg 02/03/24 09:00 02/04/24 07:52 Pantoprazole Sodium Iv 40 Mg Vial IV PUSH 40 mg QAM ALLEY Administration Radiology Results: ITS Impressions Abdomen/Pelvis CT 02/03/24 06:17 IMPRESSION: 1. Acute on chronic interstitial pancreatitis. 2. Cholelithiasis. Gallbladder distention may be secondary to fasting or acute cholecystitis. Abdomen Ultrasound 02/03/24 08:19 IMPRESSION: 1. Heterogeneous pancreas, consistent with pancreatitis. 2. Diffus
[2024-02-04 22:00] VITALS: BP 135/81; PULSE 116; RESP 18; TEMP 36.8; O2SAT 96
[2024-02-05] MEDS: HYDROmorphone HCL INJ (*CRX) 1 MG/ML SYR IV PUSH ×2 (03:08→11:02)
[2024-02-05] MEDS: SODIUM CHLORIDE 0.9% IV 1,000 ML 125 ML IV CONT ×2 (03:09→11:03)
[2024-02-05] MEDS: ONDANSETRON INJ 4 MG/2 ML VIAL IV PUSH ×2 (03:17→09:16)
[2024-02-05 06:00] VITALS: BP 147/89; PULSE 95; RESP 18; TEMP 36.7; O2SAT 96
[2024-02-05 06:22] LABS: Basophils Percent Auto 0.1 % (0.2-1.2); Hematocrit 38.2 % (42.0-52.0); Hemoglobin 12.8 g/dL (14.0-18.0); Immature Granulocyte Absolute 0.13 K/mm3 (0.00-0.031); Immature Granulocyte Percent A 0.8 % (0-0.5); Lymphocytes Absolute Auto 1.47 K/mm3 (0.9-3.2); Mean Corpuscular HGB Conc 33.5 g/dl (32-36); Mean Corpuscular Hemoglobin 29.6 pg (26-34); Mean Corpuscular Volume 88.2 fl (80-100); Mean Platelet Volume 10.4 fl (7.4-10.4); Monocytes Absolute Auto 1.5 K/mm3 (0.1-0.6); Monocytes Percent Auto 9.2 % (2.6-8.5); Neutrophils Absolute Auto 13.3 K/mm3 (1.3-6.7); Neutrophils Percent Auto 80.9 % (45.5-73.1); Platelet Count Result 154 k/mm3 (150-375); Red Blood Count 4.33 M/mm3 (4.6-6.20); Red Cell Distribution Width 14.6 % (11.5-14.5); White Blood Count 16.4 K/mm3 (4.5-10.0)
[2024-02-05 06:35] LABS: Alanine Aminotransferase 215 U/L (6-50); Albumin Level 3.4 g/dL (3.5-5.1); Alkaline Phosphatase 52 U/L (38-126); Anion Gap 6 mmol/L (4-12); Aspartate Amino Transferase 51 U/L (17-59); Bilirubin,Total 1.6 mg/dL (0.2-1.3); Blood Urea Nitrogen 16 mg/dL (9-20); Calcium 8.1 mg/dL (8.4-10.2); Carbon Dioxide 28 mmol/L (22-30); Chloride 100 mmol/L (98-107); Estimated CRCL calculation 134 ml/min; Estimated Glomerular Filt Rate > 60; Glucose 131 mg/dL (65-110); Magnesium 1.9 mg/dL (1.6-2.3); Potassium 3.9 mmol/L (3.4-5.0); Sodium 134 mmol/L (137-145)
[2024-02-05] MEDS: ENOXAPARIN 40 MG/0.4 ML SYRINGE SUB-Q (09:16)
[2024-02-05] MEDS: PANTOPRAZOLE SODIUM IV 40 MG VIAL IV PUSH (09:16)
--- NOTE | 2024-02-05 11:28 | PM.PNGS ---
Progress Note: A&P Assessment and Plan (1) Acute pancreatitis: Code(s): K85.90 - Acute pancreatitis without necrosis or infection, unspecified Status: Acute Assessment and Plan: Clinically the patient has acute pancreatitis that continues to improve. Exact etiology is still not certain but biliary pancreatitis or alcoholic pancreatitis is most likely the cause. White blood count coming down to 16,000 today. LFTs are coming down with his bilirubin at 1.6 today. GI continues to follow. For now continue supportive management. Start Miralax daily for bowel stimulation. Will advance him to a low fat diet today and add options for oral analgesics for pain control. I will also add Ensure supplements since he doesn't have much of an appetite. His albumin was 3.4 today. Will repeat labs and another lipase again tomorrow. He will eventually need an interval laparoscopic cholecystectomy once his acute pancreatitis resolves, and we will continue to follow along to decide on timing of surgery either during this hospitalization or as an outpatient. (2) Gallstone: Code(s): K80.20 - Calculus of gallbladder without cholecystitis without obstruction Status: Acute Assessment and Plan: As above Plan I have discussed the patient's case and plan of care with Dr. Swenson. Subjective Subjective Date/Time Seen: 02/05/24 11:28 Interval history: Patient is feeling better today. Abdominal pain has improved, although he is complaining of some mild RLQ abdominal pain as well as epigastric and RUQ pain this morning. He feels like he has bloating and gas pains. Denies flatus and his last BM was 3 days ago. No nausea or vomiting, but appetite is poor. Exam Const: General: comfortable and no acute distress Orientation/consciousness: patient oriented x3 GI: Inspection: other (mildly distended) GI Palp: Yes Soft to palpation, Yes Tenderness to palpation present (GI) (mild tenderness in the RUQ, epigastric area, and RLQ), No Guarding due to palpation present (GI) and No Rebound tenderness present Auscultation: Hypoactive bowel sounds present Objective Data Vital Signs Vital Signs: Vital Signs - 24 hr 02/04/24 13:53 02/04/24 21:00 02/04/24 22:00 Temperature 98.1 F 98.3 F Pulse Rate 105 H 116 H Respiratory Rate 16 18 Blood Pressure 173/93 H 135/81 Pulse Oximetry 96 96 Oxygen Delivery Room Air 02/05/24 06:00 02/05/24 09:16 Temperature 98.1 F Pulse Rate 95 Respiratory Rate 18 Blood Pressure 147/89 H Pulse Oximetry 96 Oxygen Delivery Room Air Intake/Output Intake/Output: Intake & Output 02/02/24 02/03/24 02/04/24 02/05/24 23:59 23:59 23:59 23:59 Intake Total 2575.1 3020.1 2197.5 Balance 2575.1 3020.1 2197.5 Meds/Results Medications: Active Medications Generic Name Dose Route Start Last Admin Trade Name Freq PRN Reason Stop Dose Admin Enoxaparin Sodium 40 mg 02/03/24 09:00 02/05/24 09:16 Enoxaparin 40 Mg/0.4 Ml Syringe SUB-Q 40 mg DAILY ALLEY Administration Hydromorphone HCl 1 mg 02/04/24 11:26 02/05/24 11:02 Hydromorphone Hcl Inj (*Crx) 1 Mg/Ml Syr IV PUSH 1 mg Q3H PRN Administration Pain Rated 7-10 Sodium Chloride 1,000 mls @ 125 mls/hr 02/03/24 07:20 02/05/24 11:03 Normal Saline Iv IV CONT 125 mls/hr .Q8H ALLEY Administration Ondansetron HCl 4 mg 02/03/24 09:30 02/05/24 09:16 Ondansetron Inj 4 Mg/2 Ml Vial IV PUSH 4 mg Q6H PRN Administration Nausea And Vomiting Pantoprazole Sodium 40 mg 02/03/24 09:00 02/05/24 09:16 Pantoprazole Sodium Iv 40 Mg Vial IV PUSH 40 mg QAM ALLEY Administration Radiology Results: ITS Impressions Abdomen/Pelvis CT 02/03/24 06:17 IMPRESSION: 1. Acute on chronic interstitial pancreatitis. 2. Cholelithiasis. Gallbladder distention may be secondary to fasting or acute cholecystitis. Abdomen Ultrasound 02/03/24 08:19 IMPRESSION: 1. Heterogeneous pancreas, consistent w
--- NOTE | 2024-02-05 13:21 | PM.IMPN ---
Progress Note: A&P Assessment and Plan (1) Gallstone: Code(s): K80.20 - Calculus of gallbladder without cholecystitis without obstruction Status: Acute (2) Acute pancreatitis: Code(s): K85.90 - Acute pancreatitis without necrosis or infection, unspecified Status: Acute (3) Elevated liver enzymes: Code(s): R74.8 - Abnormal levels of other serum enzymes Status: Acute Plan Patient is a 43-year-old gentleman presents emergency department chief complaint of abdominal pain. Patient reports that he started pain yesterday reports that it starts in the upper abdomen but now has continued to the rest of his abdomen the patient reports he has not had been able to keep anything down has had vomiting of the patient reports that symptoms are not improved by anything he denies diarrhea reports he has had a normal bowel movement the last 24 hours denies prior surgical history on the abdomen On ED evaluation vitals were stable. Laboratory test studies reveal white cell count of 13.8 normal renal function blood sugar 227. Lipase came back at 31,813. AST and ALT were elevated at 313 and 253 respectively with a bilirubin of 2.1. CT scan of the abdomen pelvis showed acute on chronic interstitial pancreatitis with cholelithiasis. Gallbladder distention may be secondary to fasting acute cholecystitis. Follow-up abdominal ultrasound showed a dizziness pain care consistent with pancreatitis with diffuse hepatic steatosis and cholelithiasis with no evidence of acute cholecystitis. Patient will be treated with IV fluid pain control with analgesics and antiemetics. Will keep him NPO for now. check triglycerides. History of pancreatitis related to binge alcohol use in the past. though he had recent alcohol use was not excessive amount. He does have gallstone in the gallbladder however bile ducts are not distended. Possibility of biliary pancreatitis. Trend LFTs for now if if not improving may need MRCP evaluation. GI and General surgery has been consulted. MRCP with no choledocholithiasis. LFTs trending up. Continue IV fluid resuscitation and other orders as is. Abnormal liver function test no biliary ductal dilatation noted. Will continue to monitor. GI consultation. MRCP with no choledocholithiasis. Continue to trend LFT. Likely from acute pancreatitis. Change IV pain medication to Dilaudid IV due to nausea and improved. LFTs improving now. General surgery interval laparoscopic cholecystectomy. Leukocytosis mild likely reactive. No Fever. Continues to trend down. Constipation MiraLax added DVT prophylaxis Lovenox Code status full code Subjective Date/time seen: 02/05/24 13:22 Interval history: Pain is better. Fullness is there but no nausea or vomiting. Remains afebrile. Labs reviewed. Tolerated clear liquid diet Review of Systems Review of Systems: All systems reviewed & are unremarkable except as noted in HPI and below Exam Narrative: GENERAL: Well-appearing, well-nourished, and in no acute distress. HEAD: Normocephalic, atraumatic. EYES: PERRLA and EOMI. ENT: Nares clear, no rhinorrhea or epistaxis. Mucous membranes moist. NECK: Supple. CHEST: Clear to auscultation. No respiratory distress. HEART: Regular rate and rhythm. No murmur heard. Normal peripheral pulses. ABDOMEN: Soft, tender epigastrium, nondistended, normal active bowel sounds. EXTREMITIES: Normal range of motion. No edema. SKIN: Warm, dry, no rash. NEURO: No focal deficits. Alert and oriented x3. PSYCH: Normal mood and affect. Objective Data Vital Signs Vital Signs: Vital Signs - 24 hr 02/04/24 13:53 02/04/24 21:00 02/04/24 22:00 Temperature 98.1 F 98.3 F Pulse Rate 105 H 116 H Respiratory Rate 16 18 Blood Pressure 173/93 H 135/81 Pulse Oximetry 96 96 Oxygen Delivery Room Air 02/05/24 06:00 02/05/24 09:16 Temperature 98.1 F Pulse Rate 95 Respiratory Rate 18 Blood Pressure 147/89 H Pulse Oxim
[2024-02-05 14:00] VITALS: BP 157/92; PULSE 96; RESP 18; TEMP 36.8; O2SAT 96
[2024-02-05] MEDS: HYDROcodone/acetaminophen (*CRX) 10-325 MG TABLET 1 TAB PO (15:36)
[2024-02-05] MEDS: polyethylene glycoL 3350 17 GM POWD.PACK PO (15:36)
--- NOTE | 2024-02-05 16:31 | WPDGIPROGNO ---
Progress Note: A&P Assessment and Plan (1) Gallstone pancreatitis: Code(s): K85.10 - Biliary acute pancreatitis without necrosis or infection Status: Acute Assessment and Plan: bili trending down and pain has improved, mrcp showed cholelithiasis and fatty liver will need interval lap emanuel, timing per surgery advancing diet (2) Elevated liver enzymes: Code(s): R74.8 - Abnormal levels of other serum enzymes Status: Acute Assessment and Plan: trending down (3) Nausea & vomiting: Code(s): R11.2 - Nausea with vomiting, unspecified Status: Acute Assessment and Plan: better (4) Upper abdominal pain: Code(s): R10.10 - Upper abdominal pain, unspecified Status: Acute Assessment and Plan: better with pain meds Subjective Date/time seen: 02/05/24 16:31 Interval history: tolerating diet, still with pain but better Review of Systems Review of Systems: All systems reviewed & are unremarkable except as noted in HPI and below Exam Const: General: comfortable and no acute distress Orientation/consciousness: patient oriented x3 HENMT: Face/Nose/Sinus: Normal nares present Eyes: Sclera: sclerae normal Neck: Neck: supple Resp: Effort & Inspection: normal respiratory effort Cardio: Rate: regular rate GI: Inspection: other (mildly distended) GI Palp: Yes Soft to palpation, Yes Tenderness to palpation present (GI) (mild tenderness in the RUQ, epigastric area, and RLQ), No Guarding due to palpation present (GI) and No Rebound tenderness present Auscultation: Hypoactive bowel sounds present Skin: General skin exam: normal color Neuro: Speech: normal speech Motor exam (neuro): 5/5 motor strength present throughout Extrem: General: normal to inspection Psych: Mental Status: mental status grossly normal Objective Data Vital Signs Vital Signs: Vital Signs - 24 hr 02/04/24 21:00 02/04/24 22:00 02/05/24 06:00 Temperature 98.3 F 98.1 F Pulse Rate 116 H 95 Respiratory Rate 18 18 Blood Pressure 135/81 147/89 H Pulse Oximetry 96 96 Oxygen Delivery Room Air 02/05/24 09:16 02/05/24 14:00 Temperature 98.2 F Pulse Rate 96 Respiratory Rate 18 Blood Pressure 157/92 H Pulse Oximetry 96 Oxygen Delivery Room Air Intake/Output Intake/Output: Intake & Output 02/02/24 02/03/24 02/04/24 02/05/24 23:59 23:59 23:59 23:59 Intake Total 2575.1 3020.1 2326.7 Balance 2575.1 3020.1 2326.7 Meds/Results Medications: Active Medications Generic Name Dose Route Start Last Admin Trade Name Freq PRN Reason Stop Dose Admin Acetaminophen 650 mg 02/05/24 11:29 Acetaminophen 325 Mg Tablet PO Q4H PRN Mild Pain (1-3) or Fever Hydrocodone Bitart/Acetaminophen 1 tab 02/05/24 11:29 Hydrocodone/Acetaminophen (*Crx) 5-325 Mg Tablet PO Q4H PRN Pain Rated 4-6 Hydrocodone Bitart/Acetaminophen 1 tab 02/05/24 11:29 02/05/24 15:36 Hydrocodone/Acetaminophen (*Crx) 10-325 Mg Tablet PO 1 tab Q6H PRN Administration Pain Rated 7-10 Enoxaparin Sodium 40 mg 02/03/24 09:00 02/05/24 09:16 Enoxaparin 40 Mg/0.4 Ml Syringe SUB-Q 40 mg DAILY ALLEY Administration Hydromorphone HCl 1 mg 02/04/24 11:26 02/05/24 11:02 Hydromorphone Hcl Inj (*Crx) 1 Mg/Ml Syr IV PUSH 1 mg Q3H PRN Administration Pain Rated 7-10 Sodium Chloride 1,000 mls @ 80 mls/hr 02/03/24 07:20 02/05/24 12:05 Normal Saline Iv IV CONT 80 mls/hr .[id number] ALLEY Infusion Ondansetron HCl 4 mg 02/03/24 09:30 02/05/24 09:16 Ondansetron Inj 4 Mg/2 Ml Vial IV PUSH 4 mg Q6H PRN Administration Nausea And Vomiting Pantoprazole Sodium 40 mg 02/03/24 09:00 02/05/24 09:16 Pantoprazole Sodium Iv 40 Mg Vial IV PUSH 40 mg QAM ALLEY Administration Polyethylene Glycol 17 gm 02/05/24 11:30 02/05/24 15:36 Polyethylene Glycol 3350 17 Gm Powd.Pack PO 17 gm QAM ALLEY Administration Ra
[2024-02-05] MEDS: diphenhydrAMINE HCl CAP 25 MG CAPSULE PO (17:12)
[2024-02-05] MEDS: SODIUM CHLORIDE 0.9% IV 1,000 ML 80 ML IV CONT (21:51)
[2024-02-05 22:00] VITALS: BP 152/91; PULSE 91; RESP 18; TEMP 37.1; O2SAT 96
[2024-02-05] MEDS: traMADol HCL (*CRX) 50 MG TABLET PO (22:13)
[2024-02-06] MEDS: traMADol HCL (*CRX) 50 MG TABLET PO ×2 (02:05→09:31)
[2024-02-06 05:35] LABS: Hematocrit 36.2 % (42.0-52.0); Hemoglobin 12.2 g/dL (14.0-18.0); Mean Corpuscular HGB Conc 33.7 g/dl (32-36); Mean Corpuscular Hemoglobin 29.8 pg (26-34); Mean Corpuscular Volume 88.5 fl (80-100); Mean Platelet Volume 10.4 fl (7.4-10.4); Platelet Count Result 147 k/mm3 (150-375); Red Blood Count 4.09 M/mm3 (4.6-6.20); Red Cell Distribution Width 13.8 % (11.5-14.5); White Blood Count 12.1 K/mm3 (4.5-10.0)
[2024-02-06 05:54] LABS: Alanine Aminotransferase 146 U/L (6-50); Albumin Level 3.3 g/dL (3.5-5.1); Alkaline Phosphatase 55 U/L (38-126); Anion Gap 7 mmol/L (4-12); Aspartate Amino Transferase 30 U/L (17-59); Bilirubin,Total 1.1 mg/dL (0.2-1.3); Blood Urea Nitrogen 12 mg/dL (9-20); Calcium 8.3 mg/dL (8.4-10.2); Carbon Dioxide 30 mmol/L (22-30); Chloride 97 mmol/L (98-107); Estimated CRCL calculation 120 ml/min; Estimated Glomerular Filt Rate > 60; Glucose 121 mg/dL (65-110); Lipase 253 U/L (23-300); Magnesium 2.1 mg/dL (1.6-2.3); Sodium 134 mmol/L (137-145)
[2024-02-06 06:00] VITALS: BP 150/94; PULSE 82; RESP 18; TEMP 36.7; O2SAT 96
[2024-02-06 06:21] LABS: Potassium 3.8 mmol/L (3.4-5.0)
[2024-02-06] MEDS: ENOXAPARIN 40 MG/0.4 ML SYRINGE SUB-Q (08:35)
[2024-02-06] MEDS: polyethylene glycoL 3350 17 GM POWD.PACK PO (08:36)
[2024-02-06] MEDS: PANTOPRAZOLE SODIUM IV 40 MG VIAL IV PUSH (08:36)
--- NOTE | 2024-02-06 08:36 | PM.PNGS ---
Progress Note: A&P Assessment and Plan (1) Acute pancreatitis: Code(s): K85.90 - Acute pancreatitis without necrosis or infection, unspecified Status: Acute Assessment and Plan: Acute pancreatitis is resolving. Etiology likely biliary vs alcoholic pancreatitis. White blood count continues to trend down to 12,100. LFTs trending down to normal today. GI continues to follow. Continue supportive management. He is tolerating a low fat diet. Still has not had a bowel movement since admission. Continue Miralax and will add a Dulcolax suppository today. We will try planning his interval laparoscopic cholecystectomy for Sunday prior to discharge. Will continue to follow. (2) Gallstone: Code(s): K80.20 - Calculus of gallbladder without cholecystitis without obstruction Status: Acute Assessment and Plan: As above Plan I have discussed the patient's case and plan of care with Dr. Swenson. Subjective Subjective Date/Time Seen: 02/06/24 08:38 Patient reports: no new complaints, pain is less, tolerating a regular diet, voiding w/o difficulty, no flatus, no bowel movement and afebrile Interval history: Patient reportedly feeling better again today. Abdominal pain improving. Denies any pain this morning. His only complaint is abdominal bloating. No nausea or vomiting. He is tolerating solids. He is reportedly walking the halls a few times per day. He still denies flatus or BM. Started Miralax yesterday. Lipase normal. LFTs nearly normalized. WBC down to 12k. Exam Const: General: comfortable and no acute distress GI: Other: Abdomen is soft and mildly distended. Mild tenderness in the RUQ that is improving. No guarding. More bowel sounds today. Objective Data Vital Signs Vital Signs: Vital Signs - 24 hr 02/05/24 09:16 02/05/24 14:00 02/05/24 19:59 Temperature 98.2 F Pulse Rate 96 Respiratory Rate 18 Blood Pressure 157/92 H Pulse Oximetry 96 Oxygen Delivery Room Air Room Air 02/05/24 22:00 02/06/24 06:00 Temperature 98.8 F 98.0 F Pulse Rate 91 82 Respiratory Rate 18 18 Blood Pressure 152/91 H 150/94 H Pulse Oximetry 96 96 Oxygen Delivery Intake/Output Intake/Output: Intake & Output 09/22/24 09/23/24 09/24/24 09/25/24 23:59 23:59 23:59 23:59 Intake Total 2575.1 3020.1 3359.0 1450 Balance 2575.1 3020.1 3359.0 1450 Meds/Results Medications: Active Medications Generic Name Dose Route Start Last Admin Trade Name Freq PRN Reason Stop Dose Admin Acetaminophen 650 mg 02/05/24 11:29 Acetaminophen 325 Mg Tablet PO Q4H PRN Mild Pain (1-3) or Fever Diphenhydramine HCl 25 mg 02/05/24 17:04 02/05/24 17:12 Diphenhydramine Hcl Cap 25 Mg Capsule PO 25 mg Q6H PRN Administration Itching Enoxaparin Sodium 40 mg 02/03/24 09:00 02/06/24 08:35 Enoxaparin 40 Mg/0.4 Ml Syringe SUB-Q 40 mg DAILY ALLEY Administration Hydromorphone HCl 1 mg 02/04/24 11:26 02/05/24 11:02 Hydromorphone Hcl Inj (*Crx) 1 Mg/Ml Syr IV PUSH 1 mg Q3H PRN Administration Pain Rated 7-10 Sodium Chloride 1,000 mls @ 80 mls/hr 02/03/24 07:20 02/06/24 08:37 Normal Saline Iv IV CONT 80 mls/hr .[id number] ALLEY Administration Ondansetron HCl 4 mg 02/03/24 09:30 02/05/24 09:16 Ondansetron Inj 4 Mg/2 Ml Vial IV PUSH 4 mg Q6H PRN Administration Nausea And Vomiting Pantoprazole Sodium 40 mg 02/03/24 09:00 02/06/24 08:36 Pantoprazole Sodium Iv 40 Mg Vial IV PUSH 40 mg QAM ALLEY Administration Polyethylene Glycol 17 gm 02/05/24 11:30 02/06/24 08:36 Polyethylene Glycol 3350 17 Gm Powd.Pack PO 17 gm QAM ALLEY Administration Tramadol HCl 50 mg 02/05/24 17:04 02/06/24 02:05 Tramadol Hcl (*Crx) 50 Mg Tablet PO 50 mg Q4H PRN Administration Pain Rated 4-6 Radiology Results: ITS Impressions Abdomen/Pelvis CT 02/03/24 06:17 IMPRESSION: 1. Acute on chronic interstitial pancreatitis. 2. Ch
[2024-02-06] MEDS: SODIUM CHLORIDE 0.9% IV 1,000 ML 80 ML IV CONT (08:37)
[2024-02-06 13:53] VITALS: BP 148/95; PULSE 80; RESP 18; TEMP 37.2; O2SAT 98
[2024-02-06] MEDS: BISACODYL 10 MG SUPPOSITORY RECTAL (14:49)
--- NOTE | 2024-02-06 14:51 | WPDGIPROGNO ---
Progress Note: A&P Assessment and Plan (1) Gallstone pancreatitis: Code(s): K85.10 - Biliary acute pancreatitis without necrosis or infection Status: Acute Assessment and Plan: bili trending down and pain has improved, mrcp showed cholelithiasis and fatty liver pancreatitis is improving, ? surgery Sunday tolerating diet (2) Elevated liver enzymes: Code(s): R74.8 - Abnormal levels of other serum enzymes Status: Acute Assessment and Plan: trending down (3) Nausea & vomiting: Code(s): R11.2 - Nausea with vomiting, unspecified Status: Acute Assessment and Plan: better (4) Upper abdominal pain: Code(s): R10.10 - Upper abdominal pain, unspecified Status: Acute Assessment and Plan: better with pain meds Subjective Date/time seen: 02/06/24 14:51 Interval history: pain is much better and more comfortable Review of Systems Review of Systems: All systems reviewed & are unremarkable except as noted in HPI and below Exam Const: General: comfortable and no acute distress Orientation/consciousness: patient oriented x3 HENMT: Face/Nose/Sinus: Normal nares present Eyes: Sclera: sclerae normal Neck: Neck: supple Resp: Effort & Inspection: normal respiratory effort Cardio: Rate: regular rate GI: Inspection: other (mildly distended) GI Palp: Yes Soft to palpation, Yes Tenderness to palpation present (GI) (mild tenderness in the RUQ, epigastric area, and RLQ) and No Guarding due to palpation present (GI) Skin: General skin exam: normal color Neuro: Speech: normal speech Motor exam (neuro): 5/5 motor strength present throughout Extrem: General: normal to inspection Psych: Mental Status: mental status grossly normal Objective Data Vital Signs Vital Signs: Vital Signs - 24 hr 02/05/24 19:59 02/05/24 22:00 02/06/24 06:00 Temperature 98.8 F 98.0 F Pulse Rate 91 82 Respiratory Rate 18 18 Blood Pressure 152/91 H 150/94 H Pulse Oximetry 96 96 Oxygen Delivery Room Air 02/06/24 08:35 02/06/24 13:53 Temperature 99.0 F Pulse Rate 80 Respiratory Rate 18 Blood Pressure 148/95 H Pulse Oximetry 98 Oxygen Delivery Room Air Intake/Output Intake/Output: Intake & Output 02/03/24 02/04/24 02/05/2402/05/24 23:59 23:59 23:59 23:59 Intake Total 2575.1 3020.1 3359.0 2176 Balance 2575.1 3020.1 3359.0 2176 Meds/Results Medications: Active Medications Generic Name Dose Route Start Last Admin Trade Name Freq PRN Reason Stop Dose Admin Acetaminophen 650 mg 02/05/24 11:29 Acetaminophen 325 Mg Tablet PO Q4H PRN Mild Pain (1-3) or Fever Bisacodyl 10 mg 02/06/24 09:58 02/06/24 14:49 Bisacodyl 10 Mg Suppository RECTAL 10 mg QAM PRN Administration Constipation Diphenhydramine HCl 25 mg 02/05/24 17:04 02/05/24 17:12 Diphenhydramine Hcl Cap 25 Mg Capsule PO 25 mg Q6H PRN Administration Itching Enoxaparin Sodium 40 mg 02/03/24 09:00 02/06/24 08:35 Enoxaparin 40 Mg/0.4 Ml Syringe SUB-Q 40 mg DAILY ALLEY Administration Hydromorphone HCl 1 mg 02/04/24 11:26 02/05/24 11:02 Hydromorphone Hcl Inj (*Crx) 1 Mg/Ml Syr IV PUSH 1 mg Q3H PRN Administration Pain Rated 7-10 Ondansetron HCl 4 mg 02/03/24 09:30 02/05/24 09:16 Ondansetron Inj 4 Mg/2 Ml Vial IV PUSH 4 mg Q6H PRN Administration Nausea And Vomiting Pantoprazole Sodium 40 mg 02/03/24 09:00 02/06/24 08:36 Pantoprazole Sodium Iv 40 Mg Vial IV PUSH 40 mg QAM ALLEY Administration Polyethylene Glycol 17 gm 02/05/24 11:30 02/06/24 08:36 Polyethylene Glycol 3350 17 Gm Powd.Pack PO 17 gm QAM ALLEY Administration Tramadol HCl 50 mg 02/05/24 17:04 02/06/24 09:31 Tramadol Hcl (*Crx) 50 Mg Tablet PO 50 mg Q4H PRN Administration Pain Rated 4-6 Radiology Results: ITS Impressions Abdomen/Pelvis CT 02/03/24 06:17 IMPRESSION: 1. Acute on chronic inte
--- NOTE | 2024-02-06 16:47 | PM.IMPN ---
Progress Note: A&P Assessment and Plan (1) Acute pancreatitis: Code(s): K85.90 - Acute pancreatitis without necrosis or infection, unspecified Status: Acute Assessment and Plan: Patient presents with abdominal pain. WBC 13.8, blood sugar 227. Lipase came back at 31,813. AST and ALT were elevated at 313 and 253 respectively with a bilirubin of 2.1. CT scan of the abdomen pelvis showed acute on chronic interstitial pancreatitis with cholelithiasis. Gallbladder distention may be secondary to fasting acute cholecystitis. Follow-up abdominal ultrasound showed pancreatitis with diffuse hepatic steatosis and cholelithiasis with no evidence of acute cholecystitis. Patient will be treated with IV fluid pain control with analgesics and antiemetics. History of pancreatitis related to binge alcohol use in the past. Recent alcohol use was not excessive amount. GI and General surgery has been consulted. MRCP with no choledocholithiasis. LFTs trending down. Lipase normal now. Diet advanced Plan for lap chol on Sunday (2) Gallstone: Code(s): K80.20 - Calculus of gallbladder without cholecystitis without obstruction Status: Acute Assessment and Plan: As above (3) Elevated liver enzymes: Code(s): R74.8 - Abnormal levels of other serum enzymes Status: Acute Assessment and Plan: LFTs trending down. Plan Constipation - MiraLax added. Consider ileus. DVT prophylaxis Lovenox Code status full code Subjective Date/time seen: 02/06/24 16:47 Interval history: 44yo male with hx of pancreatitis at 17yo (possibly from binge drinking) here for abdomnal pain. Assuming care. Chart reviewed. Abd pain worse today but felt related to no BM x 5 days. No flatus today or yesteday. No CP. No CP with exertion prior to hospitalization Exam Narrative: AF 99.0 148/95 80 18 98% ra Gen - NARD Chest - CTA bilaterally, nml RR CV - RRR S1/S2 Abd - Soft, NT/ND, hypoactive BS Ext - No pedal edema Neuro - Alert and oriented. Nonfocal exam. Psych - Nml mood and affect Skin - Warm and dry Objective Data Vital Signs Vital Signs: Vital Signs - 24 hr 02/05/24 19:59 02/05/24 22:00 02/06/24 06:00 Temperature 98.8 F 98.0 F Pulse Rate 91 82 Respiratory Rate 18 18 Blood Pressure 152/91 H 150/94 H Pulse Oximetry 96 96 Oxygen Delivery Room Air 02/06/24 08:35 02/06/24 13:53 Temperature 99.0 F Pulse Rate 80 Respiratory Rate 18 Blood Pressure 148/95 H Pulse Oximetry 98 Oxygen Delivery Room Air Intake/Output Intake/Output: Intake & Output 02/03/24 02/04/24 02/05/24 02/06/24 23:59 23:59 23:59 23:59 Intake Total 2575.1 3020.1 3359.0 2176 Balance 2575.1 3020.1 3359.0 2176 Meds/Results Medications: Active Medications Generic Name Dose Route Start Last Admin Trade Name Freq PRN Reason Stop Dose Admin Acetaminophen 650 mg 02/05/24 11:29 Acetaminophen 325 Mg Tablet PO Q4H PRN Mild Pain (1-3) or Fever Bisacodyl 10 mg 02/06/24 09:58 02/06/24 14:49 Bisacodyl 10 Mg Suppository RECTAL 10 mg QAM PRN Administration Constipation Diphenhydramine HCl 25 mg 02/05/24 17:04 02/05/24 17:12 Diphenhydramine Hcl Cap 25 Mg Capsule PO 25 mg Q6H PRN Administration Itching Enoxaparin Sodium 40 mg 02/03/24 09:00 02/06/24 08:35 Enoxaparin 40 Mg/0.4 Ml Syringe SUB-Q 40 mg DAILY ALLEY Administration Hydromorphone HCl 1 mg 02/04/24 11:26 02/05/24 11:02 Hydromorphone Hcl Inj (*Crx) 1 Mg/Ml Syr IV PUSH 1 mg Q3H PRN Administration Pain Rated 7-10 Ondansetron HCl 4 mg 02/03/24 09:30 02/05/24 09:16 Ondansetron Inj 4 Mg/2 Ml Vial IV PUSH 4 mg Q6H PRN Administration Nausea And Vomiting Pantoprazole Sodium 40 mg 02/03/24 09:00 02/06/24 08:36 Pantoprazole Sodium Iv 40 Mg Vial IV PUSH 40 mg QAM ALLEY Administration Polyethylene Glycol 17 gm 02/05/24 11:30 09
[2024-02-06] MEDS: diphenhydrAMINE HCl CAP 25 MG CAPSULE PO ×2 (18:08→23:46)
[2024-02-06 21:37] VITALS: BP 131/78; PULSE 80; RESP 18; TEMP 36.7; O2SAT 97
[2024-02-06] MEDS: ACETAMINOPHEN 325 MG TABLET 650 MG PO (22:24)
[2024-02-07 06:00] VITALS: BP 148/87; PULSE 73; RESP 18; TEMP 36.7; O2SAT 97
[2024-02-07] MEDS: PANTOPRAZOLE SODIUM IV 40 MG VIAL IV PUSH (09:53)
[2024-02-07] MEDS: polyethylene glycoL 3350 17 GM POWD.PACK PO (09:53)
--- NOTE | 2024-02-07 09:58 | PM.PNGS ---
Progress Note: A&P Assessment and Plan (1) Acute pancreatitis: Code(s): K85.90 - Acute pancreatitis without necrosis or infection, unspecified Status: Acute Assessment and Plan: Acute pancreatitis is resolving. His abdominal pain continues to improve and his lipase has come down to normal. The patient wishes to proceed with surgery on this admission. We have added him onto the surgery schedule for tomorrow for a laparoscopic cholecystectomy, possible open, by Dr. Swenson. Description of the procedure, risks, benefits, expected outcomes, and expected recovery were discussed with the patient in detail. We discussed the risks of bile leak and bile duct injury, liver/bowel injury, bleeding, and infection. Also discussed the possibility of having to convert to an open procedure if necessary. Will make him NPO after midnight and order labs for the morning. He is still complaining of bloating and has not moved his bowel since admission. Continue daily Miralax and we will add a dose of milk of magnesia this morning. If he does not have a BM by this afternoon, then we will give him another dose of milk of mag. Encouraged him to be up and ambulating in the halls, which he has been doing multiple times daily. (2) Gallstone: Code(s): K80.20 - Calculus of gallbladder without cholecystitis without obstruction Status: Acute Assessment and Plan: As above Plan I have discussed the patient's case and plan of care with Dr. Swenson. Subjective Subjective Date/Time Seen: 02/07/24 09:58 Patient reports: flatus and no bowel movement Interval history: Patient doing well today. No abdominal pain, nausea, or vomiting. His main complaint again today is bloating. He started passing flatus, but still no BM. No other complaints at this time. Exam Const: General: comfortable and no acute distress GI: Other: Abdomen is soft and mildly distended. Mild tenderness in the RUQ that is improving. No guarding. More bowel sounds today. Objective Data Vital Signs Vital Signs: Vital Signs - 24 hr 02/06/24 13:53 02/06/24 21:37 02/06/24 20:00 Temperature 99.0 F 98.1 F Pulse Rate 80 80 Respiratory Rate 18 18 Blood Pressure 148/95 H 131/78 Pulse Oximetry 98 97 Oxygen Delivery Room Air 02/07/24 06:00 Temperature 98.1 F Pulse Rate 73 Respiratory Rate 18 Blood Pressure 148/87 H Pulse Oximetry 97 Oxygen Delivery Intake/Output Intake/Output: Intake & Output 02/04/24 02/05/24 02/06/24 02/07/24 23:59 23:59 23:59 23:59 Intake Total 3020.1 3359.0 2966 600 Balance 3020.1 3359.0 2966 600 Meds/Results Medications: Active Medications Generic Name Dose Route Start Last Admin Trade Name Freq PRN Reason Stop Dose Admin Acetaminophen 650 mg 02/05/24 11:29 02/06/24 22:24 Acetaminophen 325 Mg Tablet PO 650 mg Q4H PRN Administration Mild Pain (1-3) or Fever Bisacodyl 10 mg 02/06/24 09:58 02/06/24 14:49 Bisacodyl 10 Mg Suppository RECTAL 10 mg QAM PRN Administration Constipation Diphenhydramine HCl 25 mg 02/05/24 17:04 02/06/24 23:46 Diphenhydramine Hcl Cap 25 Mg Capsule PO 25 mg Q6H PRN Administration Itching Enoxaparin Sodium 40 mg 02/03/24 09:00 02/07/24 09:53 Enoxaparin 40 Mg/0.4 Ml Syringe SUB-Q Not Given DAILY ALLEY Hydromorphone HCl 1 mg 02/04/24 11:26 02/05/24 11:02 Hydromorphone Hcl Inj (*Crx) 1 Mg/Ml Syr IV PUSH 1 mg Q3H PRN Administration Pain Rated 7-10 Ondansetron HCl 4 mg 02/03/24 09:30 02/05/24 09:16 Ondansetron Inj 4 Mg/2 Ml Vial IV PUSH 4 mg Q6H PRN Administration Nausea And Vomiting Pantoprazole Sodium 40 mg 02/03/24 09:00 02/07/24 09:53 Pantoprazole Sodium Iv 40 Mg Vial IV PUSH 40 mg QAM ALLEY Administration Polyethylene Glycol 17 gm 02/05/24 11:30 02/07/24 09:53 Polyethylene Glycol 3350 17 Gm Powd.Pack PO 17 gm QAM ALLEY Administration Tramadol HCl 50 mg 02/05/24 17:04 0
[2024-02-07] MEDS: MAGNESIUM HYDROXIDE SUSP 30 ML UDC PO ×2 (10:37→17:44)
[2024-02-07 14:46] VITALS: BP 156/86; PULSE 85; RESP 16; TEMP 36.3; O2SAT 97
[2024-02-07] MEDS: ONDANSETRON INJ 4 MG/2 ML VIAL IV PUSH (17:44)
--- NOTE | 2024-02-07 19:04 | PM.IMPN ---
Progress Note: A&P Assessment and Plan (1) Acute pancreatitis: Code(s): K85.90 - Acute pancreatitis without necrosis or infection, unspecified Status: Acute Assessment and Plan: Patient presents with abdominal pain. WBC 13.8, blood sugar 227. Lipase came back at 31,813. AST and ALT were elevated at 313 and 253 respectively with a bilirubin of 2.1. CT scan of the abdomen pelvis showed acute on chronic interstitial pancreatitis with cholelithiasis. Gallbladder distention may be secondary to fasting acute cholecystitis. Follow-up abdominal ultrasound showed pancreatitis with diffuse hepatic steatosis and cholelithiasis with no evidence of acute cholecystitis. Patient will be treated with IV fluid pain control with analgesics and antiemetics. History of pancreatitis related to binge alcohol use in the past. Recent alcohol use was not excessive amount. GI and General surgery has been consulted. MRCP with no choledocholithiasis. LFTs trending down. Lipase normal now. Diet advanced and he tolerted this well. Plan for lap chol tomorrow (2) Gallstone: Code(s): K80.20 - Calculus of gallbladder without cholecystitis without obstruction Status: Acute Assessment and Plan: As above (3) Elevated liver enzymes: Code(s): R74.8 - Abnormal levels of other serum enzymes Status: Acute Assessment and Plan: LFTs trending down. Plan Constipation - MiraLax added. +BMs now DVT prophylaxis Lovenox Code status full code Subjective Date/time seen: 02/07/24 19:04 Interval history: 44yo male with hx of pancreatitis at 17yo (possibly from binge drinking) here for abdomnal pain. +BM. No CP or SOB. Eating okay. Slight nause abut no vomiting. Exam Narrative: AF 97.4 156/86 85 16 97% ra Gen - NARD Chest - CTA bilaterally, nml RR CV - RRR S1/S2 Abd - Soft, ND, slight epigastric pain Ext - No pedal edema Psych - Nml mood and affect Skin - Warm and dry Objective Data Vital Signs Vital Signs: Vital Signs - 24 hr 02/06/24 21:37 02/06/24 20:00 02/07/24 06:00 Temperature 98.1 F 98.1 F Pulse Rate 80 73 Respiratory Rate 18 18 Blood Pressure 131/78 148/87 H Pulse Oximetry 97 97 Oxygen Delivery Room Air 02/07/24 09:50 02/07/24 14:46 Temperature 97.4 F L Pulse Rate 85 Respiratory Rate 16 Blood Pressure 156/86 H Pulse Oximetry 97 Oxygen Delivery Room Air Intake/Output Intake/Output: Intake & Output 02/04/24 02/05/24 02/06/24 02/07/24 23:59 23:59 23:59 23:59 Intake Total 3020.1 3359.0 2966 1220 Balance 3020.1 3359.0 2966 1220 Meds/Results Medications: Active Medications Generic Name Dose Route Start Last Admin Trade Name Freq PRN Reason Stop Dose Admin Acetaminophen 650 mg 02/05/24 11:29 02/06/24 22:24 Acetaminophen 325 Mg Tablet PO 650 mg Q4H PRN Administration Mild Pain (1-3) or Fever Diphenhydramine HCl 25 mg 02/05/24 17:04 02/06/24 23:46 Diphenhydramine Hcl Cap 25 Mg Capsule PO 25 mg Q6H PRN Administration Itching Enoxaparin Sodium 40 mg 02/03/24 09:00 02/07/24 09:53 Enoxaparin 40 Mg/0.4 Ml Syringe SUB-Q Not Given DAILY ALLEY Hydromorphone HCl 1 mg 02/04/24 11:26 02/05/24 11:02 Hydromorphone Hcl Inj (*Crx) 1 Mg/Ml Syr IV PUSH 1 mg Q3H PRN Administration Pain Rated 7-10 Lactated Ringer's 1,000 mls @ 100 mls/hr 02/08/24 00:05 Lr - Lactated Ringers Iv IV CONT .Q10H ALLEY Ondansetron HCl 4 mg 02/03/24 09:30 02/07/24 17:44 Ondansetron Inj 4 Mg/2 Ml Vial IV PUSH 4 mg Q6H PRN Administration Nausea And Vomiting Pantoprazole Sodium 40 mg 02/03/24 09:00 02/07/24 09:53 Pantoprazole Sodium Iv 40 Mg Vial IV PUSH 40 mg QAM ALLEY Administration Polyethylene Glycol 17 gm 02/05/24 11:30 02/07/24 09:53 Polyethylene Glycol 3350 17 Gm Powd.Pack PO 17 gm QAM ALLEY Administration Tramadol HCl 50 mg 02/05/24 17:04
[2024-02-07 20:06] VITALS: BP 159/99; PULSE 92; RESP 18; TEMP 37.3; O2SAT 98
[2024-02-07] MEDS: traMADol HCL (*CRX) 50 MG TABLET PO (20:18)
[2024-02-08] VITALS (13 sets, daily range): BP systolic 138–166; BP diastolic 77–98; PULSE 72–92; RESP 12–18; TEMP 35.6–37.1; O2SAT 92–100
[2024-02-08] MEDS: LACTATED RINGERS 1,000 ML 100 ML IV CONT ×2 (00:50→18:31)
[2024-02-08 06:02] LABS: Hematocrit 36.9 % (42.0-52.0); Hemoglobin 12.7 g/dL (14.0-18.0); Mean Corpuscular HGB Conc 34.4 g/dl (32-36); Mean Corpuscular Hemoglobin 29.5 pg (26-34); Mean Corpuscular Volume 85.8 fl (80-100); Mean Platelet Volume 9.9 fl (7.4-10.4); Platelet Count Result 221 k/mm3 (150-375); Red Cell Distribution Width 13.2 % (11.5-14.5); White Blood Count 11.2 K/mm3 (4.5-10.0)
[2024-02-08 06:13] LABS: Partial Thromboplastin Time 29.3 Seconds (22.3-36.8)
[2024-02-08 06:15] LABS: Alanine Aminotransferase 94 U/L (6-50); Albumin Level 3.5 g/dL (3.5-5.1); Alkaline Phosphatase 73 U/L (38-126); Anion Gap 6 mmol/L (4-12); Aspartate Amino Transferase 33 U/L (17-59); Bilirubin,Total 0.9 mg/dL (0.2-1.3); Blood Urea Nitrogen 14 mg/dL (9-20); Calcium 8.4 mg/dL (8.4-10.2); Carbon Dioxide 34 mmol/L (22-30); Chloride 96 mmol/L (98-107); Estimated CRCL calculation 134 ml/min; Estimated Glomerular Filt Rate > 60; Glucose 102 mg/dL (65-110); Phosphorus 3.8 mg/dL (2.5-4.5); Potassium 3.1 mmol/L (3.4-5.0); Sodium 136 mmol/L (137-145)
[2024-02-08] MEDS: PANTOPRAZOLE SODIUM IV 40 MG VIAL IV PUSH (08:34)
[2024-02-08] MEDS: POTASSIUM CHLORIDE 20 MEQ PACKET (FOR LIQUID) 40 MEQ PO (08:42)
[2024-02-08] MEDS: LACTATED RINGERS 1,000 ML 30 ML IV CONT ×2 (10:00→12:05)
--- NOTE | 2024-02-08 10:11 | WPDHPUPDATE1 ---
History and Physical Update Update Date/Time: 02/08/24 10:11 History and Physical has been reviewed, including an updated exam of the patient. There are NO changes in the patient's condition. Risks, benefits, and alternatives have been discussed and questions answered. Patient agrees to proceed with procedure.
--- NOTE | 2024-02-08 10:27 | WPDANESEPPF ---
Anes - Initial Pre Proc Eval Procedure: Operation Date: 02/08/24 10:30 Proposed Procedures p Laparoscopic Cholecystectomy - Yoel Swenson MD Date/Time: 02/08/24 10:27 Surgeon: Remigio Taylor MD Pre Op Diagnosis: acute pancreatitis Patient Data Age: 44 Gender: M Height: 1.85 m Weight: 113.4 kg Last Vital Signs Temp 98.1 F 02/08/24 06:51 Pulse 72 02/08/24 06:51 Resp 18 02/08/24 06:51 BP 138/88 02/08/24 06:51 Pulse Ox 96 02/08/24 06:51 O2 Del Method Room Air 02/07/24 20:22 FiO2 21 02/04/24 09:59 Allergies Allergy/AdvReac Type Severity Reaction Status Date / Time Iodinated Contrast Media Allergy Intermediate Sneezing Verified 02/03/24 09:48 hydrocodone Allergy Itching Verified 02/05/24 17:10 lisdexamfetamine AdvReac Intermediate heart Verified 02/03/24 09:48 [From [employer]] racing Home Medications Medication Instructions Recorded Confirmed Type No Home Medications 02/03/24 02/03/24 History Laboratory Tests 02/08/24 05:34 WBC 11.2 H K/mm3 (4.5-10.0) RBC 4.30 L M/mm3 (4.6-6.20) Hgb 12.7 L g/dL (14.0-18.0) Hct 36.9 L % (42.0-52.0) MCV 85.8 fl (80-100) MCH 29.5 pg (26-34) MCHC 34.4 g/dl (32-36) RDW 13.2 % (11.5-14.5) Plt Count 221 D k/mm3 (150-375) MPV 9.9 fl (7.4-10.4) PT 14.0 Seconds (11.1-14.7) INR 1.0 APTT 29.3 Seconds (22.3-36.8) Sodium 136 L mmol/L (137-145) Potassium 3.1 L mmol/L (3.4-5.0) Chloride 96 L mmol/L (98-107) Carbon Dioxide 34 H mmol/L (22-30) Anion Gap 6 mmol/L (4-12) BUN 14 mg/dL (9-20) Creatinine 0.80 mg/dL (0.7-1.3) Estim Creat Clear Calc 134 ml/min Estimated GFR > 60 (59 - ) Glucose 102 mg/dL (65-110) Calcium 8.4 mg/dL (8.4-10.2) Phosphorus 3.8 mg/dL (2.5-4.5) Total Bilirubin 0.9 mg/dL (0.2-1.3) AST 33 U/L (17-59) ALT 94 H U/L (6-50) Alkaline Phosphatase 73 U/L (38-126) Total Protein 6.0 L g/dL (6.3-8.2) Albumin 3.5 g/dL (3.5-5.1) Blood Type A Positive Antibody Screen Negative Patient hx anesthesia problems: none Family hx anesthesia problems: none Results Review: All pre-operative results and documents have been reviewed as part of the pre-operative evaluation. [facility] Past Medical History Medical History (Updated 02/03/24 @ 14:39 by Prasanna Segundo MD) Adult BMI 32.0-32.9 kg/sq m Gallstone pancreatitis Nausea & vomiting Upper abdominal pain Family History Family History Other Hypertension Social History Social History Smoking status: Never smoker Alcohol intake: never Substance use: current Substance use type: marijuana Other substance usage details: Edibles - occasional Do You Feel Safe in your Home?: Yes Lack of Transportation: No Lack of Food: Never True Current Housing: I Have Housing Concerned About Future Housing: No Difficulty Paying Gas/Electric Bills: No Difficulty Paying for Meds: No Currently Unemployed: No Education: Don't Know Difficulty w/ Childcare or Family Care: No Living arrangements: with family Occupation/Education: occupation Additional occupation/education comments: IT Gender identity (if verbalized by the patient): Male Spiritual care concerns: No Anes - Eval Final PreProcedure Day of Procedure 02/08/24 10:27 Patient weight: obese Heart: regular rate and rhythm Lungs: clear to auscultation Airway: Mallampati scale class II Neurological: alert and oriented Last oral intake: >/= 8 hours ASA classification: III Emergent: no Anesthetic plan: proceed Anesthesia type and monitoring: general ETT and standard monitoring Results Review: All pre-operative results and documents have been reviewed as part of the pre-
[2024-02-08] MEDS: LIDO 1%/EPINEPHRINE 1:100,000 50 ML VIAL 30 ML INFILTRATE ×2 (11:09→11:15)
[2024-02-08] MEDS: BUPivacaine HCL 0.5% PF 30 ML VIAL INFILTRATE (11:34)
--- NOTE | 2024-02-08 12:03 | W.PM.PROC2 ---
Procedure Note - Detailed Date of Procedure 02/08/24 Pre-op Diagnosis Acute biliary pancreatitis, cholelithiasis Post-op Diagnosis Same Procedure Performed Laparoscopic cholecystectomy Surgeon Yoel Swenson MD [employer] Betito Elias, SAFETY PHYSICIAN Anesthesia General Indications Patient is a 44-year-old gentleman was admitted to the hospital with severe epigastric abdominal pain. He was found to have acute pancreatitis. He also found to have a large gallstone within the gallbladder but no obvious evidence of acute cholecystitis at that time. He had a prior history many years ago of acute pancreatitis due to alcohol use but that was over 20 years ago. He states he did not drink excessively recently. Under image she has a very large gallstone measuring at least 3cm in diameter. Presents now for a laparoscopic cholecystectomy as he may have acute biliary pancreatitis. Findings Patient had thickening and edema of the gallbladder wall. Difficult to tell where this was primary acute cholecystitis or reaction from his acute pancreatitis. Large gallstone measuring at least 3cm in diameter noted within the midportion of the gallbladder. Description of Procedure After informed consent was obtained patient brought to the operating room where he was placed in a supine position and then general endotracheal anesthesia was administered. The abdomen was then prepped and draped usual sterile fashion. A time-out was then performed correctly identifying the patient as well as procedure to be performed. He was given Ancef for perioperative IV antibiotics. I then entered the abdomen left upper quadrant utilizing a 5mm Optiview port. Once inside the abdomen insufflated to adequate pneumoperitoneum of 15mmHg of CO2. There were no adhesions around the umbilicus I placed a 5mm periumbilical trocar port and then switched laparoscopic to the periumbilical trocar port. Looking to the upper portions of the abdomen I placed a 10mm epigastric trocar port 2 right lateral subcostal 5mm trocar ports all under direct visualization. The omentum was then stripped off of the gallbladder. The gallbladder had 1 chronic adhesion of the omentum to it. I was able to hold the gallbladder at the dome and elevated the gallbladder over the right half liver towards the right shoulder. I then bluntly stripped down a few more adhesions of the omentum to the infundibular gallbladder. A 2nd grasper was then used to hold the gallbladder at the infundibulum. The lateral traction on the infundibular gallbladder and I dissected down along the infundibulum stripping with the visceral peritoneum. Identified the cystic duct and dissected this structure out circumferentially. Posterior medial to the duct identified the cystic artery and dissected this structure out circumferentially as well. Posterior wall the gallbladder at the infundibulum dissected free liver until the critical view was obtained. At this point I then placed 2 clips proximally cystic duct and 2 clips distally high on infundibular gallbladder. The cystic duct was divided with Endo Dior. In a similar fashion cystic artery clipped and divided as well. The gallbladder was then resected off the liver utilized electrocautery. This done without spilling any bile or any gallstones. The gallbladder was then placed into an Endo-Catch bag and brought out through the epigastric port site. The gallbladder had very large gallstone within it. The gallbladder gallstones sent to pathology for examination. I then irrigated out the right upper quadrant abdomen gallbladder fossa copious sterile saline solution. Hemostasis was good. No evidence of bile leak was noted. I then aspirated the fluid from the right upper quadrant the abdomen from the pelvis. I then removed all the trocar ports under visualization all port sites appeared hemostatic. I then allowed the abdomen decompressed. I then proceeded to irrigate subcu tissues the port sites and they were
[2024-02-08] MEDS: oxyCODONE HCL (*CRX) 5 MG TAB IR PO (13:51)
[2024-02-08] MEDS: HYDROmorphone HCL INJ (*CRX) 1 MG/ML SYR IV PUSH (15:49)
--- NOTE | 2024-02-08 17:33 | PM.IMPN ---
Progress Note: A&P Assessment and Plan (1) Acute pancreatitis: Code(s): K85.90 - Acute pancreatitis without necrosis or infection, unspecified Status: Acute Assessment and Plan: Patient presents with abdominal pain. WBC 13.8, blood sugar 227. Lipase came back at 31,813. AST and ALT were elevated at 313 and 253 respectively with a bilirubin of 2.1. CT scan of the abdomen pelvis showed acute on chronic interstitial pancreatitis with cholelithiasis. Gallbladder distention may be secondary to fasting acute cholecystitis. Follow-up abdominal ultrasound showed pancreatitis with diffuse hepatic steatosis and cholelithiasis with no evidence of acute cholecystitis. Patient will be treated with IV fluid pain control with analgesics and antiemetics. History of pancreatitis related to binge alcohol use in the past. Recent alcohol use was not excessive amount. GI and General surgery were consulted. MRCP with no choledocholithiasis. LFTs trending down. Lipase normal now. NPO for lap chol today Per RN, patient tolerated the procedure well but having more post-op pain requiriing Dilaudid (2) Gallstone: Code(s): K80.20 - Calculus of gallbladder without cholecystitis without obstruction Status: Acute Assessment and Plan: As above (3) Elevated liver enzymes: Code(s): R74.8 - Abnormal levels of other serum enzymes Status: Acute Assessment and Plan: LFTs trending down. Plan Constipation - MiraLax added. +BMs yesterday DVT prophylaxis Lovenox Code status full code Subjective Date/time seen: 02/08/24 17:33 Interval history: 44yo male with hx of pancreatitis at 17yo (possibly from binge drinking) here for abdominal pain. Patient seen before surgery: no n/v. Passing flatus but no BMs. No CP or SOB. Exam Narrative: AF 96.0 147/92 85 18 97% ra Gen - NARD Chest - CTA bilaterally, nml RR CV - RRR S1/S2 Abd - Soft, ND, minimal RUQ pain Ext - No pedal edema Psych - Nml mood and affect Skin - Warm and dry Objective Data Vital Signs Vital Signs: Vital Signs - 24 hr 02/07/24 20:06 02/07/24 20:22 02/08/24 06:51 Temperature 99.1 F 98.1 F Pulse Rate 92 72 Respiratory Rate 18 18 Blood Pressure 159/99 H 138/88 Pulse Oximetry 98 96 Oxygen Delivery Room Air Oxygen Flow Rate 02/08/24 10:00 02/08/24 12:05 02/08/24 12:20 Temperature 97.4 F L 97.9 F Pulse Rate 73 92 87 Respiratory Rate 14 16 17 Blood Pressure 144/91 H 147/91 H 145/90 H Pulse Oximetry 96 100 100 Oxygen Delivery Room Air Simple Face Mask Simple Face Mask Oxygen Flow Rate 6 6 02/08/24 12:35 02/08/24 12:50 02/08/24 13:05 Temperature Pulse Rate 79 83 80 Respiratory Rate 14 12 12 Blood Pressure 151/92 H 148/93 H 152/77 H Pulse Oximetry 92 93 92 Oxygen Delivery Room Air Room Air Room Air Oxygen Flow Rate 02/08/24 13:17 02/08/24 13:40 02/08/24 13:45 Temperature 97.8 F 97.7 F Pulse Rate 82 82 86 Respiratory Rate 13 16 16 Blood Pressure 149/85 H 146/83 H 166/98 H Pulse Oximetry 94 92 92 Oxygen Delivery Room Air Oxygen Flow Rate 02/08/24 14:18 02/08/24 15:15 Temperature 97.5 F L 96.0 F L Pulse Rate 83 85 Respiratory Rate 16 18 Blood Pressure 158/93 H 147/92 H Pulse Oximetry 93 97 Oxygen Delivery Oxygen Flow Rate Intake/Output Intake/Output: Intake & Output 02/05/24 02/06/24 02/07/24 02/08/24 23:59 23:59 23:59 23:59 Intake Total 3359.0 2966 1220 1628 Output Total 350 Balance 3359.0 2966 1220 1278 Meds/Results Medications: Active Medications Generic Name Dose Route Start Last Admin Trade Name Freq PRN Reason Stop Dose Admin Acetaminophen 650 mg 02/05/24 11:29 02/06/24 22:24 Acetaminophen 325 Mg Tablet PO 650 mg Q4H PRN Administration Mild Pain (1-3) or Fever Hydrocodone Bitart/Acetaminophen 1 tab 02/08/24 13:21 Hydrocodone/Acetaminophen (*Crx) 5-325 Mg Tablet PO Q4H PRN
[2024-02-08] MEDS: HYDROcodone/acetaminophen (*CRX) 5-325 MG TABLET 1 TAB PO (22:03)
[2024-02-09 01:15] VITALS: BP 144/90; PULSE 70; RESP 18; TEMP 36.7; O2SAT 97
[2024-02-09 05:15] VITALS: BP 136/87; PULSE 55; RESP 18; TEMP 36.3; O2SAT 98
--- NOTE | 2024-02-09 09:07 | WPDANESPN ---
Anes - Prog Note Post-Op Date/Time: 02/09/24 09:07 Cardiovascular status: normal Respiratory status: normal Airway patency: baseline Mental status: baseline Post-Op hydration status: normal Vital Signs: Last Vital Signs Temp 36.3 C L 02/09/24 05:15 Pulse 55 L 02/09/24 05:15 Resp 18 02/09/24 05:15 BP 136/87 02/09/24 05:15 Pulse Ox 98 02/09/24 05:15 O2 Del Method Room Air 02/08/24 20:09 O2 Flow Rate 6 02/08/24 12:20 FiO2 21 02/04/24 09:59 Pain Score (VAS): 2/10 I/O: Intake & Output 02/08/24 02/09/24 02/09/24 23:59 07:59 15:59 Intake Total 476 350 Balance 476 350 Laboratory Tests 02/08/24 05:34 02/08/24 05:34 Post-procedural complaints: none Patient Feedback: Patient satisfied with anesthetic care.
[2024-02-09] MEDS: ENOXAPARIN 40 MG/0.4 ML SYRINGE SUB-Q (09:17)
--- NOTE | 2024-02-09 12:00 | PM.DS ---
DS: Admitting Diagnosis Discharge Date 02/09/24 Admitting Diagnosis Abdominal pain DS: Discharge Diagnosis Discharge Diagnosis (1) Acute pancreatitis: Code(s): K85.90 - Acute pancreatitis without necrosis or infection, unspecified Status: Acute (2) Gallstone: Code(s): K80.20 - Calculus of gallbladder without cholecystitis without obstruction Status: Acute (3) Elevated liver enzymes: Code(s): R74.8 - Abnormal levels of other serum enzymes Status: Acute DS: Summary Hospital Course Reason for hospitalization: 44yo male with hx of pancreatitis at 17yo (possibly from binge drinking) here for abdominal pain. Please see H&P for details. Hospital Course: Patient presents with abdominal pain. WBC 13.8, blood sugar 227. Lipase came back at 31,813. AST and ALT were elevated at 313 and 253 respectively with a bilirubin of 2.1. CT scan of the abdomen pelvis showed acute on chronic interstitial pancreatitis with cholelithiasis. Gallbladder distention may be secondary to fasting acute cholecystitis. Abdominal ultrasound showed pancreatitis with diffuse hepatic steatosis and cholelithiasis with no evidence of acute cholecystitis. Patient was treated with IV fluid, pain control with analgesics and antiemetics. History of pancreatitis related to binge alcohol use in the past. Recent alcohol use was not excessive amount. GI and General surgery were consulted. MRCP showing no choledocholithiasis. LFTs trended down. Lipase normalized. Patient underwent laparoscopic cholecystectomy 02/07. He tolerated the procedure well. He is up ambulating. Pain is well controlled. +BMs. Tolerating oral intake. He overall did well and was able to be discharged home on 02/09/24. Status at Discharge Cognitive/behavioral status at discharge: stable Time Spent with Patient Time attestation: Total time spent providing and/or coordinating discharge services: 34 minutes Time spent: Greater than 30 minutes Exam Narrative: AF 97.4 136/87 55 18 98% ra Gen - NARD Chest - CTA bilaterally, nml RR CV - RRR S1/S2 Abd - Soft, ND, multiple incisions are clean, dry and intact Ext - No pedal edema Psych - Nml mood and affect Skin - Warm and dry DS: Data Data Completed and Pending Pending studies at discharge: Pending at discharge 02/08/24 10:47 Surgical [PTH] Routine Discharge Plan Discharge Attending physician on discharge: Hernesto Bonner Consulting providers: Prasanna Segundo; Yoel Swenson Discharging Clinician: Hernesto Bonner Anticipated Discharge Date/Time: 02/09/24 12:05 Patient Disposition: Home, Self-Care Activity: other - see discharge instructions Diet: low fat Wound Care Instructions: other - see discharge instructions Discharge Instructions: May discharge home when stable. Follow up with Dr. Swenson in the office in 2 weeks. Patient to call [phone] for an appointment. May shower in 24hours but do not soak incisions under water for 2 weeks. No lifting more than 10 to 15 lb for 2 weeks. May advance diet as tolerated. No driving for at least 3 days or until no longer taking any narcotic pain medication. Resume all home medications. Prescription for narcotic pain medicines will be sent to the patient's pharmacy if needed. May use Tylenol and/or ibuprofen in addition to or in place of narcotic pain medications for postoperative pain. Follow-up with your primary care provider in 1-2 weeks. Please call for appointment. Thank you for using [facility] for your health care needs. Patient Instructions: Antibiotic Form Stand Alone Forms: General Discharge Information Follow-up/Referrals: Sae Kim MD [Primary Care Provider] - Call for Appointment Discharge Medications: New oxycodone 5 mg tablet 5 mg PO Q6H PRN (Reason: pain) Qty: 12 0RF Date of admission: 02/03/24 13:26 Primary Care Provider: Sae Kim
--- NOTE | 2024-02-09 14:21 | PC.NURSE ---
Pt requesting tramadol vs oxycodone. Call made to surgery exchange for director of communications to call floor to request med change. Pt preferred to leave without receiving verification of new med being sent. Willy called after pt had left, stating he would recall oxy and send tramadol instead.
--- NOTE | 2024-02-09 14:37 | PM.PNGS ---
Progress Note: A&P Assessment and Plan (1) Acute cholecystitis due to biliary calculus: Code(s): K80.00 - Calculus of gallbladder with acute cholecystitis without obstruction Status: Acute Assessment and Plan: Doing well after laparoscopic cholecystectomy yesterday. Okay from surgical standpoint to discharge. Discharge instructions and orders are already in place. Subjective Subjective Date/Time Seen: 02/09/24 09:07 Post Op day: 1 Patient reports: no new complaints, feels better, tolerating a regular diet and afebrile Interval history: Wants to go home Exam Const: General: healthy appearing, comfortable, alert, awake and well groomed Orientation/consciousness: patient oriented x3 and No confusion GI: Inspection: non-distended and incision (Dry and healing well) GI Palp: Yes Soft to palpation and Yes Tenderness to palpation present (GI) (Mild appropriate tenderness) Auscultation: normal bowel sounds Objective Data Vital Signs Vital Signs: Vital Signs - 24 hr 02/08/24 15:15 02/08/24 20:09 02/08/24 19:51 Temperature 35.6 C L 37.1 C Pulse Rate 85 76 Respiratory Rate 18 18 Blood Pressure 147/92 H 138/92 H Pulse Oximetry 97 97 Oxygen Delivery Room Air 02/09/24 01:15 02/09/24 05:15 Temperature 36.7 C 36.3 C L Pulse Rate 70 55 L Respiratory Rate 18 18 Blood Pressure 144/90 H 136/87 Pulse Oximetry 97 98 Oxygen Delivery Intake/Output Intake/Output: Intake & Output 02/06/24 02/07/24 02/08/24 02/09/24 23:59 23:59 23:59 23:59 Intake Total 2966 1220 2376 570 Output Total 350 Balance 2966 1220 2026 570 Meds/Results Radiology Results: ITS Impressions Abdomen/Pelvis CT 02/03/24 06:17 IMPRESSION: 1. Acute on chronic interstitial pancreatitis. 2. Cholelithiasis. Gallbladder distention may be secondary to fasting or acute cholecystitis. Abdomen Ultrasound 02/03/24 08:19 IMPRESSION: 1. Heterogeneous pancreas, consistent with pancreatitis. 2. Diffuse hepatic steatosis. 3. Cholelithiasis. No evidence of acute cholecystitis. MRCP 02/04/24 07:59 Impression: Acute pancreatitis. Diffuse fatty infiltration of liver. Cholelithiasis. No evidence of choledocholithiasis.
== END 2024-02-09 13:10 | disposition home or self-care (01) | DRG 418 ==
LOC: ANHED 06:40 → ANH3MEDSUR 08:01 → ANH3MED 08:13
PROVIDERS: Nurse Practitioner Family; Surgery; Admitting Provider Internal Medicine; Emergency Provider Emergency Medicine; PCP Family Medicine; Visit Provider Internal Medicine
PROC: 0FT44ZZ Resection of Gallbladder, Percutaneous Endoscopic Approach (ICD-10-PCS; CPT 47562; principal; 2024-02-08 10:30)
DX: K85.10 Biliary acute pancreatitis without necrosis or infection (principal); K80.00 Calculus of gallbladder with acute cholecystitis without obstruction; K85.20 Alcohol induced acute pancreatitis without necrosis or infection; E66.9 Obesity, unspecified; Z68.33 Body mass index [BMI] 33.0-33.9, adult; K76.0 Fatty (change of) liver, not elsewhere classified
CPT/HCPCS: 36415; 74176; 74183; 76376; 76705; 80053; 81001; 83036; 83690; 83735; 84100; 84478; 85025; 85027; 85610; 85730; 86850; 86900; 86901; 88304; 96361; 96372; 96374; 96375; 96376; 99285; A9270; A9577; G0378; J1100; J1170; J1650; J2250; J2270; J2405; J2470; J2704; J3010; J7030; J7120